=== PATIENT | male | born 1940 | race Caucasian/White ===

== ENCOUNTER 2019-05-31 22:40 | Observation (INO) | payer MEDICARE, MEDICAID ==
[2019-05-31] MEDS ORDERED: Sodium Chloride 0.9% 10 ML Syringe FLUSH PRN (22:52)
--- NOTE | 2019-05-31 23:08 | EDM.PDOC ---
ED HPI GENERAL MEDICAL PROBLEM - General Stated Complaint: ELEVATED TEMP Time Seen by Provider: 05/31/19 22:40 Source of Information: Reports: Patient History Limitations: Reports: No Limitations - History of Present Illness INITIAL COMMENTS - FREE TEXT/NARRATIVE: Pt. presents to ER via EMS. Pt. is a resident at [facility]. Pt. has been experiencing urinary urgency, frequency and dysuria for the past 24 hours. He was started on Cipro today and has had 2 doses of the medication orally. Staff is concerned that he has been spiking fevers-T max today 104.4. He has been receiving tylenol for the fever. Pt. only complaint is that of feeling fatigued and dizzy. He denies any chest pain or shortness of breath. No nausea, vomiting, or diarrhea. No melena, hematochezia, or hematemesis. He has been able to hold down fluids. Pt. denies any abdominal, back or flank pain. He has been alert but fatigued and has been answering all questions appropriately. Onset: Today Onset Date: 05/31/19 Location: Reports: Generalized Associated Symptoms: Reports: Fever/Chills, Malaise - Related Data Allergies Allergy/AdvReac Type Severity Reaction Status Date / Time adenosine Allergy Cannot Verified 05/31/19 23:52 Remember clindamycin Allergy Cannot Verified 05/31/19 23:52 Remember gluten Allergy Stomach Verified 05/31/19 23:52 Upset lisinopril Allergy Cough Verified 05/31/19 23:52 Home Meds: Home Meds Isosorbide Mononitrate [Imdur] 30 mg PO DAILY 12/22/15 [History] Nitroglycerin [Nitrostat] 0.4 mg PO ASDIRECTED PRN 12/22/15 [History] Donepezil [Aricept] 5 mg PO BEDTIME 08/19/18 [History] Escitalopram [Lexapro] 10 mg PO DAILY 08/19/18 [History] Esomeprazole [NexIUM] 20 mg PO ACBREAKFAST 08/19/18 [History] Hydrocodone/Acetaminophen [Hydrocodon-Acetaminophen 5-325] 5 - 325 mg PO Q4HR PRN 08/19/18 [History] Memantine HCl [Namenda] 5 mg PO BID 08/19/18 [History] Polyethylene Glycol 3350 [Miralax] 17 gr PO BEDTIME 08/19/18 [History] Tamsulosin [Flomax] 0.4 mg PO DAILY 08/19/18 [History] amLODIPine Besylate [Amlodipine Besylate] 5 mg PO DAILY 08/19/18 [History] carvediloL [Carvedilol] 6.25 mg PO BIDMEALS 08/19/18 [History] Polyethylene Glycol 3350 [MiraLAX] 17 gram PO DAILY 10/02/18 [History] Past Medical History HEENT History: Reports: Impaired Vision Other HEENT History: wears glasses Cardiovascular History: Reports: High Cholesterol, Hypertension Respiratory History: Reports: None Gastrointestinal History: Reports: Chronic Constipation, GERD Other Gastrointestinal History: diverticulitis Genitourinary History: Reports: BPH Other Genitourinary History: CKD Other Neuro History: memory loss Psychiatric History: Reports: Depression Endocrine/Metabolic History: Reports: None Hematologic History: Reports: None Immunologic History: Reports: None Oncologic (Cancer) History: Reports: None Dermatologic History: Reports: None - Past Surgical History Head Surgeries/Procedures: Reports: None HEENT Surgical History: Reports: Tonsillectomy GI Surgical History: Reports: Hernia Repair/Other Social & Family History - Family History Family Medical History: Noncontributory - Caffeine Use Caffeine Use: Reports: None ED ROS GENERAL - Review of Systems Review Of Systems: See Below Constitutional: Reports: Fever, Chills, Malaise, Weakness, Fatigue. Denies: Night Sweats, Diaphoresis, Decreased Appetite, Weight Loss, Weight Gain HEENT: Reports: No Symptoms Respiratory: Reports: No Symptoms Cardiovascular: Reports: No Symptoms Endocrine: Reports: No Symptoms GI/Abdominal: Reports: No Symptoms : Reports: Frequency, Urgency Musculoskeletal: Reports: No Symptoms Skin: Reports: No Symptoms Neurological: Reports: Other (Hx of dementia, but recalls history of his illness today, able to provide a ROS.) Psychiatric: Reports: No Symptoms Hematologic/Lymphatic: Reports: No Symptoms Immunologic: Reports: No Symptoms ED EXAM, GENERAL - Physical Exam Exam: See Below Exam Limited By: No Limitations General Appearance: Alert, WD/WN, No Apparent Distress Nose: Normal Inspection, No Blood Throat/Mouth: Normal Inspection, Normal Lips, Normal Gums, Normal Oropharynx, Normal Voice, No Airway Compromise Head: Atraumatic, Normocephalic Neck: Normal Inspection, Supple, Non-Tender, Full Range of Motion Respiratory/Chest: No Respiratory Distress, Lungs Clear, Normal Breath Sounds, No Accessory Muscle Use, Chest Non-Tender Cardiovascular: Normal Peripheral Pulses, Regular Rate, Rhythm, No Edema, No Gallop, No JVD, No Murmur, No Rub Peripheral Pulses: 4+: Radial (R) GI/Abdominal: Normal Bowel Sounds, Soft, Non-Tender, No Organomegaly, No Distention, No Mass (Male) Exam: Deferred Rectal (Males) Exam: Deferred Back Exam: Normal Inspection, Full Range of Motion Extremities: Normal Inspection, Normal Range of Motion, Non-Tender, No Pedal Edema, Normal Capillary Refill Neurological: Alert, Oriented, CN II-XII Intact, Normal Cognition, No Motor/ Sensory Deficits Course - Orders/Labs/Meds Orders: Active Orders 24 hr Category Date Time Status Chest 1V Frontal [CR] Stat Exams 05/31/19 22:53 Ordered CBC WITH AUTO DIFF [HEME] Stat Lab 05/31/19 22:53 Ordered COMPREHENSIVE METABOLIC PN,CMP [CHEM] Stat Lab 05/31/19 22:53 Ordered CRP [C-REACTIVE PROTEIN] [CHEM] Stat Lab 05/31/19 22:53 Ordered CULTURE BLOOD [BC] Stat Lab 05/31/19 22:54 Ordered CULTURE BLOOD [BC] Stat Lab 05/31/19 22:54 Ordered INR,PT,PROTHROMBIN TIME [COAG] Stat Lab 05/31/19 22:53 Ordered LACTIC ACID [CHEM] Stat Lab 05/31/19 22:53 Ordered MAGNESIUM [CHEM] Stat Lab 05/31/19 22:54 Ordered PHOSPHORUS [CHEM] Stat Lab 05/31/19 22:54 Ordered UA W/MICROSCOPIC [URIN] Stat Lab 05/31/19 22:54 Ordered Sodium Chloride 0.9% [Saline Flush] Med 05/31/19 22:52 Ordered 10 ml FLUSH ASDIRECTED PRN Blood Culture x2 Reflex Set [OM.PC] Stat Oth 05/31/19 22:54 Ordered Peripheral IV Insertion Adult [OM.PC] Routine Oth 05/31/19 22:53 Ordered Medication Orders Sodium Chloride (Saline Flush) 10 ml FLUSH ASDIRECTED PRN PRN Reason: Keep Vein Open Meds: Medications Generic Name Dose Route Start Last Admin Trade Name Freq PRN Reason Stop Dose Admin Sodium Chloride 10 ml 05/31/19 22:52 Saline Flush FLUSH ASDIRECTED PRN Keep Vein Open - Radiology Interpretation Free Text/Narrative:: Chest x-ray is negative. Departure - Departure Time of Disposition: 12:13 Disposition: Refer to Observation Clinical Impression: UTI (urinary tract infection) - Discharge Information Referrals: Abhay Tolentino MD [Primary Care Provider] - - Problem List Review Problem List Initiated/Reviewed/Updated: Yes - My Orders Last 24 Hours: My Active Orders 05/31/19 22:52 Sodium Chloride 0.9% [Saline Flush] 10 ml FLUSH ASDIRECTED PRN 05/31/19 22:53 Chest 1V Frontal [CR] Stat CBC WITH AUTO DIFF [HEME] Stat COMPREHENSIVE METABOLIC PN,CMP [CHEM] Stat CRP [C-REACTIVE PROTEIN] [CHEM] Stat INR,PT,PROTHROMBIN TIME [COAG] Stat LACTIC ACID [CHEM] Stat Peripheral IV Insertion Adult [OM.PC] Routine 05/31/19 22:54 CULTURE BLOOD [BC] Stat CULTURE BLOOD [BC] Stat MAGNESIUM [CHEM] Stat PHOSPHORUS [CHEM] Stat UA W/MICROSCOPIC [URIN] Stat Blood Culture x2 Reflex Set [OM.PC] Stat - Assessment/Plan Admission H&P: Please use this note as an admission H&P Last 24 Hours: My Active Orders 05/31/19 22:52 Sodium Chloride 0.9% [Saline Flush] 10 ml FLUSH ASDIRECTED PRN 05/31/19 22:53 Chest 1V Frontal [CR] Stat CBC WITH AUTO DIFF [HEME] Stat COMPREHENSIVE METABOLIC PN,CMP [CHEM] Stat CRP [C-REACTIVE PROTEIN] [CHEM] Stat INR,PT,PROTHROMBIN TIME [COAG] Stat LACTIC ACID [CHEM] Stat Peripheral IV Insertion Adult [OM.PC] Routine 05/31/19 22:54 CULTURE BLOOD [BC] Stat CULTURE BLOOD [BC] Stat MAGNESIUM [CHEM] Stat PHOSPHORUS [CHEM] Stat UA W/MICROSCOPIC [URIN] Stat Blood Culture x2 Reflex Set [OM.PC] Stat Plan: Pt. will be admitted observation. His lactic acid, white count and CRP are all elevated, and he was tachypneic prior to arrival to ER. He was given Rocephin 2 gm IV. He was given a liter of NS in ER. Tylenol as needed for fever. Continue IV fluids at 100ml/hr. Will continue IV rocephin 1 gm daily tomorrow evening. Will repeat CBC, CMP, and lactic acid in the AM.
[2019-05-31] MEDS ORDERED: Ondansetron 4 MG/2 ML SDV IVPUSH ONE (23:35)
[2019-05-31] MEDS ORDERED: Sodium Chloride 0.9% 1,000 ML IV ONE (23:37)
[2019-05-31] MEDS ORDERED: cefTRIAXone 2 GM Vial IVPUSH ONE (23:43)
[2019-05-31 23:51] LABS: ANION GAP 17.4 mmol/L (10-20); CHLORIDE,CL 103 mmol/L (98-107); SODIUM,NA 141 mmol/L (136-145)
[2019-06-01] MEDS ORDERED: Polyethylene Glycol 3350 Powder 17 GM Packet PO PRN (01:55)
[2019-06-01] MEDS ORDERED: NS + KCl 20mEq/L 1,000 ML IV SCH (02:00)
[2019-06-01 07:16] LABS: ANION GAP 14.7 mmol/L (10-20)
--- NOTE | 2019-06-01 07:36 | CR ---
[id number] RAD/RAD Chest PA or AP 1V EXAM: RAD Chest PA or AP 1V INDICATION: FEVER COMPARISON: None. DISCUSSION: Cardiomegaly and central vascular congestion. Possible small bilateral pleural effusions. No evidence of pneumonia. No pneumothorax. IMPRESSION: No radiographically evident pneumonia. Other findings are described above. Greyson Cardenas MD 06/01/19 0735 Thank you for allowing us to participate in the care of your patient.
[2019-06-01] MEDS ORDERED: Mirtazapine 15 MG Tab PO SCH ×2 (08:00→20:00)
--- NOTE | 2019-06-01 09:08 | PCM.DCSUM1 ---
Discharge Summary - Hospital Course Free Text/Narrative:: S: Pt presents to the er c/o fever, urinary frequency and pain on urination. PT was started on cipro and had 2 doses at this time. Pt was admitted last night for IV fluid and rocephin. At this time pt is feeling a little better states he want to go back home. Lactate is down to 1.1 WBC down to 17.6, Will [facility] pt to start back on cipro 500 mg po bid x 5 days, pt to follow up with pcp. O: HEENT clear, LS cta all robertson, Heart: S1, S2, Skin: pink, warm, dry, Cap refill within 2 sec. Pt able to take PO fluid / food. See labs A: UTI P: [facility]C [facility], continue cipro, follow up with pcp once medication is complete for continued care. Diagnosis: Stroke: No - Discharge Data Discharge Date: 06/01/19 Discharge Disposition: DC/[facility]fer to [facility] Condition: Stable - Referral to Home Health Primary Care Physician: Abhay Tolentino MD - Discharge Diagnosis/Problem(s) (1) UTI (urinary tract infection) SNOMED Code(s): 31900903 ICD Code: N39.0 - URINARY TRACT INFECTION, SITE NOT SPECIFIED Status: Acute Current Visit: Yes - Patient Instructions Diet: Usual Diet as Tolerated Activity: As Tolerated Showering/Bathing: May Shower - Discharge Plan Home Medications: Home Meds Isosorbide Mononitrate [Imdur] 30 mg PO DAILY 12/22/15 [History] Nitroglycerin [Nitrostat] 0.4 mg PO ASDIRECTED PRN 12/22/15 [History] Escitalopram [Lexapro] 10 mg PO DAILY 08/19/18 [History] Tamsulosin [Flomax] 0.4 mg PO DAILY 08/19/18 [History] amLODIPine Besylate [Amlodipine Besylate] 5 mg PO DAILY 08/19/18 [History] carvediloL [Carvedilol] 6.25 mg PO BIDMEALS 08/19/18 [History] Polyethylene Glycol 3350 [MiraLAX] 17 gram PO DAILY PRN 10/02/18 [History] Calcium Citrate/Vitamin D3 [Calcium Citrate - Vit D Caplet] 1 tab PO BID [History] Ciprofloxacin HCl [Cipro] 500 mg PO BID 06/01/19 [History] Docusate Sodium [Colace] 100 mg PO BID 06/01/19 [History] Mirtazapine 15 mg PO DAILY 06/01/19 [History] Pantoprazole Sodium [Protonix] 40 mg PO DAILY 06/01/19 [History] risperiDONE 0.5 mg PO DAILY 06/01/19 [History] Forms: ED Department Discharge Referrals: Abhay Tolentino MD [Primary Care Provider] - - Discharge Summary/Plan Comment DC Time >30 min.: Yes Discharge Summary/Plan Comment: continue cipro 500 mg po bid x 5 days. Follow up with pcp for continued care. - Patient Data Vitals - Most Recent: Last Vital Signs Temp 36.6 C 06/01/19 04:57 Pulse 113 H 06/01/19 04:57 Resp 18 06/01/19 04:57 BP 127/52 L 06/01/19 04:57 Pulse Ox 91 L 06/01/19 04:57 Weight - Most Recent: 130.635 kg I&O - Last 24 hours: Intake & Output 05/31/19 06/01/19 06/01/19 22:59 06:59 14:59 Intake Total 1390 Output Total 550 Balance 840 Lab Results - Last 24 hrs: Laboratory Results - last 24 hr 05/31/19 05/31/19 05/31/19 Range/Units 23:13 23:13 23:13 WBC 18.1 H (4.0-10.0) x10^3/uL RBC 4.65 (4.5-6.0) x10^6/uL Hgb 13.7 L (14.0-18.0) g/dL Hct 39.5 L (40.0-52.0) % MCV 84.9 (78.0-93.0) fL MCH 29.5 (26.0-32.0) pg MCHC 34.7 (32.0-36.0) g/dL RDW Coeff of Frantz 13.7 (10.0-15.0) % Plt Count 117 L (130-400) x10^3/uL Neut % (Auto) 81.1 H (50.0-80.0) % Lymph % (Auto) 12.2 L (25.0-50.0) % Beckham % (Auto) 6.5 (2.0-11.0) % Eos % (Auto) 0.1 (0.0-4.0) % Baso % (Auto) 0.1 L (0.2-1.2) % PT 11.8 (10.0-12.8) SEC INR 1.0 L (2.0-3.5) Sodium 141 (136-145) mmol/L Potassium 3.4 L (3.5-5.1) mmol/L Chloride 103 (98-107) mmol/L Carbon Dioxide 24 (21-32) mmol/L Anion Gap 17.4 (10-20) mmol/L BUN 23 H (7-18) mg/dL Creatinine 1.4 H (0.70-1.30) mg/dL Est Cr Clr Drug Dosing TNP Estimated GFR (MDRD) 49 Glucose 137 H (74-106) mg/dL Lactic Acid (0.4-2.0) mmol/L Calcium 8.4 L (8.5-10.1) mg/dL Corrected Calcium 8.96 (8.5-10.1) mg/dL Phosphorus 2.0 L (2.6-4.7) mg/dL Magnesium 1.4 L (1.8-2.4) mg/dL Total Bilirubin 1.4 H (0.2-1.0) mg/dL AST 15 (15-37) U/L ALT 17 (16-63) U/L Alkaline Phosphatase 63 (46-116) U/L C-Reactive Protein 7.1 H (<=0.9) mg/dL Total Protein 7.2 (6.4-8.2) g/dL Albumin 3.3 L (3.4-5.0) g/dL Globulin 3.9 Albumin/Globulin Ratio 0.85 Urine Color (YELLOW) Urine Appearance (CLEAR) Urine pH (5.0-8.0) Ur Specific Buford Urine Protein (NEGATIVE) mg/dL Urine Glucose (UA) (NEGATIVE) mg/dL Urine Ketones (NEGATIVE) mg/dL Urine Occult Blood (NEGATIVE) Urine Nitrite (NEGATIVE) Urine Bilirubin (NEGATIVE) Urine Urobilinogen (0.2) EU/dL Ur Leukocyte Esterase (NEGATIVE) Urine RBC (NOT SEEN) /HPF Urine WBC (NOT SEEN) /HPF Ur Squamous Epith Cells (NEGATIVE) /HPF Urine Bacteria (NEGATIVE) /HPF Urine Mucus (NEGATIVE) /LPF 05/31/19 05/31/19 06/01/19 Range/Units 23:13 23:36 06:46 WBC (4.0-10.0) x10^3/uL RBC (4.5-6.0) x10^6/uL Hgb (14.0-18.0) g/dL Hct (40.0-52.0) % MCV (78.0-93.0) fL MCH (26.0-32.0) pg MCHC (32.0-36.0) g/dL RDW Coeff of Frantz (10.0-15.0) % Plt Count (130-400) x10^3/uL Neut % (Auto) (50.0-80.0) % Lymph % (Auto) (25.0-50.0) % Beckham % (Auto) (2.0-11.0) % Eos % (Auto) (0.0-4.0) % Baso % (Auto) (0.2-1.2) % PT (10.0-12.8) SEC INR (2.0-3.5) Sodium (136-145) mmol/L Potassium (3.5-5.1) mmol/L Chloride (98-107) mmol/L Carbon Dioxide (21-32) mmol/L Anion Gap (10-20) mmol/L BUN (7-18) mg/dL Creatinine (0.70-1.30) mg/dL Est Cr Clr Drug Dosing Estimated GFR (MDRD) Glucose (74-106) mg/dL Lactic Acid 2.1 H* 1.1 (0.4-2.0) mmol/L Calcium (8.5-10.1) mg/dL Corrected Calcium (8.5-10.1) mg/dL Phosphorus (2.6-4.7) mg/dL Magnesium (1.8-2.4) mg/dL Total Bilirubin (0.2-1.0) mg/dL AST (15-37) U/L ALT (16-63) U/L Alkaline Phosphatase (46-116) U/L C-Reactive Protein (<=0.9) mg/dL Total Protein (6.4-8.2) g/dL Albumin (3.4-5.0) g/dL Globulin Albumin/Globulin Ratio Urine Color Dark yellow H (YELLOW) Urine Appearance Cloudy H (CLEAR) Urine pH 6.0 (5.0-8.0) Ur Specific Buford 1.025 Urine Protein 100 H (NEGATIVE) mg/dL Urine Glucose (UA) Negative (NEGATIVE) mg/dL Urine Ketones Negative (NEGATIVE) mg/dL Urine Occult Blood Moderate H (NEGATIVE) Urine Nitrite Negative (NEGATIVE) Urine Bilirubin Negative (NEGATIVE) Urine Urobilinogen 0.2 (0.2) EU/dL Ur Leukocyte Esterase Moderate H (NEGATIVE) Urine RBC 40-50 H (NOT SEEN) /HPF Urine WBC 30-40 H (NOT SEEN) /HPF Ur Squamous Epith Cells Rare (NEGATIVE) /HPF Urine Bacteria Few H (NEGATIVE) /HPF Urine Mucus Few H (NEGATIVE) /LPF 06/01/19 06/01/19 Range/Units 06:46 06:46 WBC 17.6 H (4.0-10.0) x10^3/uL RBC 4.62 (4.5-6.0) x10^6/uL Hgb 13.9 L (14.0-18.0) g/dL Hct 39.9 L (40.0-52.0) % MCV 86.4 (78.0-93.0) fL MCH 30.1 (26.0-32.0) pg MCHC 34.8 (32.0-36.0) g/dL RDW Coeff of Frantz 13.8 (10.0-15.0) % Plt Count 113 L (130-400) x10^3/uL Neut % (Auto) 79.9 (50.0-80.0) % Lymph % (Auto) 13.2 L (25.0-50.0) % Beckham % (Auto) 6.7 (2.0-11.0) % Eos % (Auto) 0.1 (0.0-4.0) % Baso % (Auto) 0.1 L (0.2-1.2) % PT (10.0-12.8) SEC INR (2.0-3.5) Sodium 142 (136-145) mmol/L Potassium 3.7 (3.5-5.1) mmol/L Chloride 104 (98-107) mmol/L Carbon Dioxide 27 (21-32) mmol/L Anion Gap 14.7 (10-20) mmol/L BUN 18 (7-18) mg/dL Creatinine 1.3 (0.70-1.30) mg/dL Est Cr Clr Drug Dosing 41.39 Estimated GFR (MDRD) 54 Glucose 116 H (74-106) mg/dL Lactic Acid (0.4-2.0) mmol/L Calcium 7.9 L (8.5-10.1) mg/dL Corrected Calcium (8.5-10.1) mg/dL Phosphorus (2.6-4.7) mg/dL Magnesium (1.8-2.4) mg/dL Total Bilirubin (0.2-1.0) mg/dL AST (15-37) U/L ALT (16-63) U/L Alkaline Phosphatase (46-116) U/L C-Reactive Protein (<=0.9) mg/dL Total Protein (6.4-8.2) g/dL Albumin (3.4-5.0) g/dL Globulin Albumin/Globulin Ratio Urine Color (YELLOW) Urine Appearance (CLEAR) Urine pH (5.0-8.0) Ur Specific Buford Urine Protein (NEGATIVE) mg/dL Urine Glucose (UA) (NEGATIVE) mg/dL Urine Ketones (NEGATIVE) mg/dL Urine Occult Blood (NEGATIVE) Urine Nitrite (NEGATIVE) Urine Bilirubin (NEGATIVE) Urine Urobilinogen (0.2) EU/dL Ur Leukocyte Esterase (NEGATIVE) Urine RBC (NOT SEEN) /HPF Urine WBC (NOT SEEN) /HPF Ur Squamous Epith Cells (NEGATIVE) /HPF Urine Bacteria (NEGATIVE) /HPF Urine Mucus (NEGATIVE) /LPF Med Orders - Current: Current Medications Amlodipine Besylate (Norvasc) 5 mg PO DAILY [facility] Carvedilol (Coreg) 6.25 mg PO BIDMEALS [facility] Ceftriaxone Sodium (Rocephin) 1 gm IVPUSH DAILY [facility] Citalopram Hydrobromide (Celexa) 20 mg PO DAILY [facility] Docusate Sodium (Colace) 100 mg PO BID [facility] Potassium Chloride/Sodium Chloride (Normal Saline With 20 Meq Kcl) 1,000 mls @ 125 mls/hr IV ASDIRECTED [facility] Last Admin: 06/01/19 02:50 Dose: 125 mls/hr Isosorbide Mononitrate (Imdur) 30 mg PO DAILY [facility] Melatonin (Melatonin) 6 mg PO BEDTIME [facility] Mirtazapine (Remeron) 15 mg PO BEDTIME [facility] Pantoprazole Sodium (Protonix) 40 mg PO DAILY [facility] Polyethylene Glycol (Miralax) 17 gm PO DAILY PRN PRN Reason: Constipation Risperidone (Risperidal) 0.5 mg PO DAILY [facility] Sodium Chloride (Saline Flush) 10 ml FLUSH ASDIRECTED PRN PRN Reason: Keep Vein Open Tamsulosin HCl (Flomax) 0.4 mg PO DAILY [facility] Discontinued Medications Ceftriaxone Sodium (Rocephin) 2 gm IVPUSH STAT ONE Stop: 05/31/19 23:44 Last Admin: 05/31/19 23:52 Dose: 2 gm Sodium Chloride (Normal Saline) 1,000 mls @ 1,000 mls/hr IV .BOLUS ONE Stop: 06/01/19 00:36 Last Admin: 05/31/19 23:20 Dose: 1,000 mls/hr Mirtazapine (Remeron) 15 mg PO DAILY [facility] Ondansetron HCl (Zofran) 4 mg IVPUSH ONETIME ONE Stop: 05/31/19 23:36 Last Admin: 05/31/19 23:40 Dose: 4 mg
[2019-06-01] MEDS: risperiDONE 0.25 MG Tab PO SCH (09:34)
[2019-06-01] MEDS: Carvedilol 6.25 MG Tab PO SCH ×2 (09:34→17:07)
[2019-06-01] MEDS: Docusate Sodium 100 MG Cap PO SCH ×2 (09:34→20:33)
[2019-06-01] MEDS: Isosorbide Mononitrate 30 MG Tab.ER PO SCH (09:35)
[2019-06-01] MEDS: Pantoprazole 40 MG Tab.CR PO SCH (09:35)
[2019-06-01] MEDS: Tamsulosin 0.4 MG Cap.ER PO SCH (09:36)
[2019-06-01] MEDS: amLODIPine 5 MG Tab PO SCH (09:36)
[2019-06-01] MEDS: Citalopram 20 MG Tab PO SCH (09:36)
[2019-06-01] MEDS: Acetaminophen 325 MG Tab PO PRN ×3 (11:16→19:19)
--- NOTE | 2019-06-01 13:01 | PCM.PN ---
- General Info Date of Service: 06/01/19 Admission Dx/Problem (Free Text): PT dx with uti presented to er last night with fever, pt was started on cipro and has had 2 doses as of that time. Was admitted placed on IV fluid, Rocephin 1G q24 hours. Pt has no elevated temp this am. Was feeling better. Was going to discharge back to correction with po medication when pt with fever at 101.8 will keep another 24 hrs continue rocephin and tylenol for fever, will revaluate in am. If fever free will d/c at that time. Functional Status: Reports: Pain Controlled - Review of Systems General: Reports: No Symptoms HEENT: Reports: No Symptoms Pulmonary: Reports: No Symptoms Cardiovascular: Reports: No Symptoms Gastrointestinal: Reports: No Symptoms Genitourinary: Reports: Dysuria, Frequency Skin: Reports: No Symptoms - Patient Data Vitals - Most Recent: Last Vital Signs Temp 38.8 C H 06/01/19 11:16 Pulse 92 06/01/19 10:00 Resp 28 H 06/01/19 10:00 BP 155/75 H 06/01/19 10:00 Pulse Ox 96 06/01/19 10:00 Weight - Most Recent: 130.635 kg I&O - Last 24 Hours: Intake & Output 05/31/19 06/01/19 06/01/19 22:59 06:59 14:59 Intake Total 1390 Output Total 550 130 Balance 840 -130 Lab Results Last 24 Hours: Laboratory Results - last 24 hr 05/31/19 05/31/19 05/31/19 Range/Units 23:13 23:13 23:13 WBC 18.1 H (4.0-10.0) x10^3/uL RBC 4.65 (4.5-6.0) x10^6/uL Hgb 13.7 L (14.0-18.0) g/dL Hct 39.5 L (40.0-52.0) % MCV 84.9 (78.0-93.0) fL MCH 29.5 (26.0-32.0) pg MCHC 34.7 (32.0-36.0) g/dL RDW Coeff of Frantz 13.7 (10.0-15.0) % Plt Count 117 L (130-400) x10^3/uL Neut % (Auto) 81.1 H (50.0-80.0) % Lymph % (Auto) 12.2 L (25.0-50.0) % [place] % (Auto) 6.5 (2.0-11.0) % Eos % (Auto) 0.1 (0.0-4.0) % Baso % (Auto) 0.1 L (0.2-1.2) % PT 11.8 (10.0-12.8) SEC INR 1.0 L (2.0-3.5) Sodium 141 (136-145) mmol/L Potassium 3.4 L (3.5-5.1) mmol/L Chloride 103 (98-107) mmol/L Carbon Dioxide 24 (21-32) mmol/L Anion Gap 17.4 (10-20) mmol/L BUN 23 H (7-18) mg/dL Creatinine 1.4 H (0.70-1.30) mg/dL Est Cr Clr Drug Dosing TNP Estimated GFR (MDRD) 49 Glucose 137 H (74-106) mg/dL Lactic Acid (0.4-2.0) mmol/L Calcium 8.4 L (8.5-10.1) mg/dL Corrected Calcium 8.96 (8.5-10.1) mg/dL Phosphorus 2.0 L (2.6-4.7) mg/dL Magnesium 1.4 L (1.8-2.4) mg/dL Total Bilirubin 1.4 H (0.2-1.0) mg/dL AST 15 (15-37) U/L ALT 17 (16-63) U/L Alkaline Phosphatase 63 (46-116) U/L C-Reactive Protein 7.1 H (<=0.9) mg/dL Total Protein 7.2 (6.4-8.2) g/dL Albumin 3.3 L (3.4-5.0) g/dL Globulin 3.9 Albumin/Globulin Ratio 0.85 Urine Color (YELLOW) Urine Appearance (CLEAR) Urine pH (5.0-8.0) Ur Specific [place] Urine Protein (NEGATIVE) mg/dL Urine Glucose (UA) (NEGATIVE) mg/dL Urine Ketones (NEGATIVE) mg/dL Urine Occult Blood (NEGATIVE) Urine Nitrite (NEGATIVE) Urine Bilirubin (NEGATIVE) Urine Urobilinogen (0.2) EU/dL Ur Leukocyte Esterase (NEGATIVE) Urine RBC (NOT SEEN) /HPF Urine WBC (NOT SEEN) /HPF Ur Squamous Epith Cells (NEGATIVE) /HPF Urine Bacteria (NEGATIVE) /HPF Urine Mucus (NEGATIVE) /LPF 05/31/19 05/31/19 06/01/19 Range/Units 23:13 23:36 06:46 WBC (4.0-10.0) x10^3/uL RBC (4.5-6.0) x10^6/uL Hgb (14.0-18.0) g/dL Hct (40.0-52.0) % MCV (78.0-93.0) fL MCH (26.0-32.0) pg MCHC (32.0-36.0) g/dL RDW Coeff of Frantz (10.0-15.0) % Plt Count (130-400) x10^3/uL Neut % (Auto) (50.0-80.0) % Lymph % (Auto) (25.0-50.0) % [place] % (Auto) (2.0-11.0) % Eos % (Auto) (0.0-4.0) % Baso % (Auto) (0.2-1.2) % PT (10.0-12.8) SEC INR (2.0-3.5) Sodium (136-145) mmol/L Potassium (3.5-5.1) mmol/L Chloride (98-107) mmol/L Carbon Dioxide (21-32) mmol/L Anion Gap (10-20) mmol/L BUN (7-18) mg/dL Creatinine (0.70-1.30) mg/dL Est Cr Clr Drug Dosing Estimated GFR (MDRD) Glucose (74-106) mg/dL Lactic Acid 2.1 H* 1.1 (0.4-2.0) mmol/L Calcium (8.5-10.1) mg/dL Corrected Calcium (8.5-10.1) mg/dL Phosphorus (2.6-4.7) mg/dL Magnesium (1.8-2.4) mg/dL Total Bilirubin (0.2-1.0) mg/dL AST (15-37) U/L ALT (16-63) U/L Alkaline Phosphatase (46-116) U/L C-Reactive Protein (<=0.9) mg/dL Total Protein (6.4-8.2) g/dL Albumin (3.4-5.0) g/dL Globulin Albumin/Globulin Ratio Urine Color Dark yellow H (YELLOW) Urine Appearance Cloudy H (CLEAR) Urine pH 6.0 (5.0-8.0) Ur Specific [place] 1.025 Urine Protein 100 H (NEGATIVE) mg/dL Urine Glucose (UA) Negative (NEGATIVE) mg/dL Urine Ketones Negative (NEGATIVE) mg/dL Urine Occult Blood Moderate H (NEGATIVE) Urine Nitrite Negative (NEGATIVE) Urine Bilirubin Negative (NEGATIVE) Urine Urobilinogen 0.2 (0.2) EU/dL Ur Leukocyte Esterase Moderate H (NEGATIVE) Urine RBC 40-50 H (NOT SEEN) /HPF Urine WBC 30-40 H (NOT SEEN) /HPF Ur Squamous Epith Cells Rare (NEGATIVE) /HPF Urine Bacteria Few H (NEGATIVE) /HPF Urine Mucus Few H (NEGATIVE) /LPF 06/01/19 06/01/19 Range/Units 06:46 06:46 WBC 17.6 H (4.0-10.0) x10^3/uL RBC 4.62 (4.5-6.0) x10^6/uL Hgb 13.9 L (14.0-18.0) g/dL Hct 39.9 L (40.0-52.0) % MCV 86.4 (78.0-93.0) fL MCH 30.1 (26.0-32.0) pg MCHC 34.8 (32.0-36.0) g/dL RDW Coeff of Frantz 13.8 (10.0-15.0) % Plt Count 113 L (130-400) x10^3/uL Neut % (Auto) 79.9 (50.0-80.0) % Lymph % (Auto) 13.2 L (25.0-50.0) % [place] % (Auto) 6.7 (2.0-11.0) % Eos % (Auto) 0.1 (0.0-4.0) % Baso % (Auto) 0.1 L (0.2-1.2) % PT (10.0-12.8) SEC INR (2.0-3.5) Sodium 142 (136-145) mmol/L Potassium 3.7 (3.5-5.1) mmol/L Chloride 104 (98-107) mmol/L Carbon Dioxide 27 (21-32) mmol/L Anion Gap 14.7 (10-20) mmol/L BUN 18 (7-18) mg/dL Creatinine 1.3 (0.70-1.30) mg/dL Est Cr Clr Drug Dosing 41.39 Estimated GFR (MDRD) 54 Glucose 116 H (74-106) mg/dL Lactic Acid (0.4-2.0) mmol/L Calcium 7.9 L (8.5-10.1) mg/dL Corrected Calcium (8.5-10.1) mg/dL Phosphorus (2.6-4.7) mg/dL Magnesium (1.8-2.4) mg/dL Total Bilirubin (0.2-1.0) mg/dL AST (15-37) U/L ALT (16-63) U/L Alkaline Phosphatase (46-116) U/L C-Reactive Protein (<=0.9) mg/dL Total Protein (6.4-8.2) g/dL Albumin (3.4-5.0) g/dL Globulin Albumin/Globulin Ratio Urine Color (YELLOW) Urine Appearance (CLEAR) Urine pH (5.0-8.0) Ur Specific [place] Urine Protein (NEGATIVE) mg/dL Urine Glucose (UA) (NEGATIVE) mg/dL Urine Ketones (NEGATIVE) mg/dL Urine Occult Blood (NEGATIVE) Urine Nitrite (NEGATIVE) Urine Bilirubin (NEGATIVE) Urine Urobilinogen (0.2) EU/dL Ur Leukocyte Esterase (NEGATIVE) Urine RBC (NOT SEEN) /HPF Urine WBC (NOT SEEN) /HPF Ur Squamous Epith Cells (NEGATIVE) /HPF Urine Bacteria (NEGATIVE) /HPF Urine Mucus (NEGATIVE) /LPF Med Orders - Current: Current Medications Acetaminophen (Tylenol) 650 mg PO Q4H PRN PRN Reason: Fever Last Admin: 06/01/19 11:16 Dose: 650 mg Amlodipine Besylate (Norvasc) 5 mg PO DAILY [facility] Last Admin: 06/01/19 09:36 Dose: 5 mg Carvedilol (Coreg) 6.25 mg PO BIDMEALS [facility] Last Admin: 06/01/19 09:34 Dose: 6.25 mg Ceftriaxone Sodium (Rocephin) 1 gm IVPUSH DAILY [facility] Citalopram Hydrobromide (Celexa) 20 mg PO DAILY [facility] Last Admin: 06/01/19 09:36 Dose: 20 mg Docusate Sodium (Colace) 100 mg PO BID [facility] Last Admin: 06/01/19 09:34 Dose: 100 mg Isosorbide Mononitrate (Imdur) 30 mg PO DAILY [facility] Last Admin: 06/01/19 09:35 Dose: 30 mg Melatonin (Melatonin) 6 mg PO BEDTIME [facility] Mirtazapine (Remeron) 15 mg PO BEDTIME [facility] Pantoprazole Sodium (Protonix) 40 mg PO DAILY [facility] Last Admin: 06/01/19 09:35 Dose: 40 mg Polyethylene Glycol (Miralax) 17 gm PO DAILY PRN PRN Reason: Constipation Risperidone (Risperidal) 0.5 mg PO DAILY [facility] Last Admin: 06/01/19 09:34 Dose: 0.5 mg Sodium Chloride (Saline Flush) 10 ml FLUSH ASDIRECTED PRN PRN Reason: Keep Vein Open Tamsulosin HCl (Flomax) 0.4 mg PO DAILY [facility] Last Admin: 06/01/19 09:36 Dose: 0.4 mg Discontinued Medications Ceftriaxone Sodium (Rocephin) 2 gm IVPUSH STAT ONE Stop: 05/31/19 23:44 Last Admin: 05/31/19 23:52 Dose: 2 gm Sodium Chloride (Normal Saline) 1,000 mls @ 1,000 mls/hr IV .BOLUS ONE Stop: 06/01/19 00:36 Last Admin: 05/31/19 23:20 Dose: 1,000 mls/hr Potassium Chloride/Sodium Chloride (Normal Saline With 20 Meq Kcl) 1,000 mls @ 125 mls/hr IV ASDIRECTED [facility] Last Admin: 06/01/19 02:50 Dose: 125 mls/hr Mirtazapine (Remeron) 15 mg PO DAILY [facility] Ondansetron HCl (Zofran) 4 mg IVPUSH ONETIME ONE Stop: 05/31/19 23:36 Last Admin: 05/31/19 23:40 Dose: 4 mg - Problem List & Annotations (1) UTI (urinary tract infection) SNOMED Code(s): 72039528 Code(s): N39.0 - URINARY TRACT INFECTION, SITE NOT SPECIFIED Status: Acute Current Visit: Yes - Problem List Review Problem List Initiated/Reviewed/Updated: Yes - My Orders Last 24 Hours: My Active Orders 06/01/19 10:19 Ready for Discharge [RC] PER UNIT ROUTINE 06/01/19 10:41 Acetaminophen [Tylenol] 650 mg PO Q4H PRN
[2019-06-01] MEDS ORDERED: Melatonin 3 MG Tab PO SCH (20:00)
[2019-06-02] MEDS: cefTRIAXone 1 GM Vial IVPUSH SCH ×2 (00:44→08:29)
[2019-06-02] MEDS: Acetaminophen 325 MG Tab PO PRN (05:26)
[2019-06-02] MEDS: Carvedilol 6.25 MG Tab PO SCH (08:27)
[2019-06-02] MEDS: Citalopram 20 MG Tab PO SCH (08:27)
[2019-06-02] MEDS: Isosorbide Mononitrate 30 MG Tab.ER PO SCH (08:28)
[2019-06-02] MEDS: Docusate Sodium 100 MG Cap PO SCH (08:28)
[2019-06-02] MEDS: risperiDONE 0.25 MG Tab PO SCH (08:29)
[2019-06-02] MEDS: amLODIPine 5 MG Tab PO SCH (08:29)
[2019-06-02] MEDS: Pantoprazole 40 MG Tab.CR PO SCH (08:29)
[2019-06-02] MEDS: Tamsulosin 0.4 MG Cap.ER PO SCH (08:29)
[2019-06-02 10:07] VITALS: BP 123/61; PULSE 74
[2019-06-02 10:44] LABS: ANION GAP 14.5 mmol/L (10-20)
[2019-06-02] MEDS ORDERED: cefTRIAXone 1 GM Vial IVPUSH SCH (11:30)
--- NOTE | 2019-06-02 11:48 | PN ---
Progress Note for LANCE HARDIN Date: 06/02/2019 Room #: VM.218 SUBJECTIVE: This is hospital day #2 on a 78-year-old from the halfway, admitted with sepsis. He was having classic urinary tract symptoms and had actually already been started on Cipro, 2 doses received before he was sent over to the ER, but he had a 103.4 fever. He was also complaining of dizziness, having blood in the urine, and urgency. Since admission, he had a bladder scan that was less than 100. He is less weak per nursing staff. Overall, was feeling better and was hopeful that they could send him back to the [facility] yesterday, but he continued to spike fevers even up until 8 p.m. he was 101.8. Otherwise, he is not having any cough. His chest x-ray did not show pneumonia. He is not having any new pain. He has a known history of dementia and actually is a patient of Dr. Pérez over there. OBJECTIVE: Vital Signs: Today, on exam, temperature is 98.5, pulse 74, blood pressure 123/61, respiratory rate 18, O2 of 96% on 2 L. General: He is in no acute distress. He is resting comfortably. Heart: Regular rate and rhythm without murmur. Lungs: His lung sounds are clear to auscultation bilaterally without crackles or wheezes. Abdomen: Nondistended and nontender. Extremities: Warm and dry. He has no edema. LABORATORY DATA: Lab work today does show his white count improved down to 12, it was 18 on admission; hemoglobin 12.3, down slightly from 13.9 yesterday; platelets in the 70s down slightly from 89 yesterday. Sodium 143, potassium 3.5, chloride 106, bicarb 26, BUN 22, creatinine 1.2, glucose 134. Lactic 1.3, it was 2.1 on admission. Calcium 7.8. Urine culture did show no growth. Blood cultures aerobic have been no growth after 1 day, but anaerobic had 3+ gram- positive cocci in clusters at about a 24-hour lisa. This was necessitating his upgrade to acute cares for continued IV antibiotics while continuing to wait for the final culture and also the fact that he has had a fever within the last 24 hours. ASSESSMENT AND PLAN: 1. Acute urinary tract infection. UA did look to be infected. Unfortunately, his culture was negative. This is likely due to him already being on Cipro, so therefore we will continue treatments with IV Rocephin. He got 2 g initially, now on 1 g every 24 hours. I will change that to q.12 hours given the bacteremia. He is improving, so we will keep type of antibiotic the same. 2. Benign prostatic hyperplasia. We will do another bladder scan today, but he has not had any evidence of retention. 3. Dementia with Alzheimer's. He is normally a halfway resident. He is doing better, up walking with staff, but given his infection, he is not stable to be discharged back to the halfway. 4. History of coronary artery disease, stable. He is not complaining of chest pain. 5. Essential hypertension. He is on his home medications. His blood pressure is controlled. 6. 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 He is on his Risperdal. 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 There is no concern for gastrointestinal bleeding. 8. Chronic kidney disease with mild anemia. This appears to be stable. We will repeat lab work tomorrow. 9. Thrombocytopenia. He has not been on any deep vein thrombosis prophylaxis with Lovenox. We will just repeat platelets tomorrow. This is possibly due to sepsis. 10.Anxiety and depression. He is on home medications. PLAN: At this point, the patient will continue acute cares. I will increase his Rocephin to q.12 hours. Anticipate that final culture results may return in the next 24 to 48 hours. Overall, if doing well, he will be stable to be discharged back to the halfway. However, if he had something like Staph aureus or Enterococcus, he may need a longer course of IV antibiotics. Discussed with Dr. Ofe Pérez and Rich Carson, so I can follow for the weekend and they will see the patient again on Tuesday. SCD's started for DVT prophylaxis MKA: 06/02/2019 11:20:23 MODL: 06/02/2019 11:42:08 /[id number] JUAN MANUEL
== END 2019-06-02 11:42 ==
LOC: VM.ED 22:40 → VM.MS 06-01 00:11
PROVIDERS: ADMIT Physician Assistant; ATTEND Physician Assistant
DX: N39.0 Urinary tract infection, site not specified (principal); N40.1 Benign prostatic hyperplasia with lower urinary tract symptoms; R35.0 Frequency of micturition; G30.9 Alzheimer's disease, unspecified; F02.80 Dementia in other diseases classified elsewhere, unspecified severity, without behavioral disturbance, psychotic disturbance, mood disturbance, and anxiety; I25.10 Atherosclerotic heart disease of native coronary artery without angina pectoris; I12.9 Hypertensive chronic kidney disease with stage 1 through stage 4 chronic kidney disease, or unspecified chronic kidney disease; N18.9 Chronic kidney disease, unspecified; D63.1 Anemia in chronic kidney disease; K22.70 Barrett's esophagus without dysplasia; E78.00 Pure hypercholesterolemia, unspecified; K59.09 Other constipation; K21.9 Gastro-esophageal reflux disease without esophagitis; F41.9 Anxiety disorder, unspecified; F32.9 Major depressive disorder, single episode, unspecified; Z88.8 Allergy status to other drugs, medicaments and biological substances; Z88.1 Allergy status to other antibiotic agents; Z79.899 Other long term (current) drug therapy
CPT/HCPCS: 36415; 71045; 80048; 80053; 81001; 83605; 83735; 84100; 85025; 85610; 86140; 87040; 87077; 87086; 96361; 96374; 96375; 96376; 99285-25; A9270-GY; G0378; J0696; J2405; J3480; J7030

== ENCOUNTER 2019-06-02 11:43 | Inpatient (IN) | payer MEDICARE, MEDICAID ==
[2019-06-02] MEDS ORDERED: Polyethylene Glycol 3350 Powder 17 GM Packet PO PRN (13:32)
[2019-06-02] MEDS ORDERED: Sodium Chloride 0.9% 10 ML Syringe FLUSH PRN (13:32)
[2019-06-02] MEDS ORDERED: Acetaminophen 325 MG Tab PO PRN (13:54)
[2019-06-02] MEDS: Carvedilol 6.25 MG Tab PO SCH (17:09)
[2019-06-02] MEDS: cefTRIAXone 1 GM Vial IV SCH (20:23)
[2019-06-02] MEDS: Docusate Sodium 100 MG Cap PO SCH (20:23)
[2019-06-02] MEDS: Melatonin 3 MG Tab PO SCH (20:23)
[2019-06-02] MEDS: Mirtazapine 15 MG Tab PO SCH (20:24)
[2019-06-03] MEDS: cefTRIAXone 1 GM Vial IV SCH (08:38)
[2019-06-03] MEDS: risperiDONE 0.25 MG Tab PO SCH (08:39)
[2019-06-03] MEDS: Isosorbide Mononitrate 30 MG Tab.ER PO SCH (08:39)
[2019-06-03] MEDS: Docusate Sodium 100 MG Cap PO SCH ×2 (08:40→19:58)
[2019-06-03] MEDS: amLODIPine 5 MG Tab PO SCH (08:40)
[2019-06-03] MEDS: Carvedilol 6.25 MG Tab PO SCH ×2 (08:40→17:15)
[2019-06-03] MEDS: Tamsulosin 0.4 MG Cap.ER PO SCH (08:41)
[2019-06-03] MEDS: Citalopram 20 MG Tab PO SCH (08:41)
[2019-06-03] MEDS: Pantoprazole 40 MG Tab.CR PO SCH (08:41)
--- NOTE | 2019-06-03 12:22 | PN ---
Progress Note for LANCE HARDIN Date: 06/03/2019 Room #: VM.218 SUBJECTIVE: This is acute hospital day #2 and observation previously, so in total hospital day #3 for a 78-year-old from the special care unit, admitted with sepsis due to a urinary tract infection. He had received some Cipro at the care center, so urine cultures were negative, but blood cultures were showing gram-positive cocci and he was still spiking fevers on the , so he was upgraded to acute yesterday. The culture is showing coagulase-negative staph, probably a contaminant. The patient has no implantable devices. No pacemaker from what I can gather. He is normally an [facility] patient. He is denying any pain today. He is not coughing, not short of breath. He is not having any trouble with voiding. His residuals have all been under 100. Overall, he is getting up, he is walking in the hallways, and he is nearly stable for discharge, however, [facility] is unable to accept him back today per report. OBJECTIVE: Vital Signs: His temperature is 98.2, his pulse 69, blood pressure 113/50, respiratory rate 18, O2 of 92% on room air. He has been afebrile now for over 24 hours. He did have a 99.4 yesterday. General: He is in no acute distress. Heart: Regular rate and rhythm. S1 and S2 without murmur. Lungs: Lung sounds are clear to auscultation bilaterally without crackles or wheezes. Abdomen: Nondistended, nontender. Extremities: Warm and dry. No edema. Mental Status: He is disorientated x3. He has no idea he is in [place]. He tells me he lives in [facility]. He did forget that he ate breakfast. LABORATORY DATA: Lab work today was not yet completed. Yesterday, white count was improving down to 12. ASSESSMENT AND PLAN: 1. Sepsis secondary to a urinary tract infection. I tried to get a culture on the urine, but it was no longer available. 2. Acute urinary tract infection without evidence of retention, but in a male patient we would recommend about a 5-day course of treatment. He has so far already received 3 days. We will continue the IV Rocephin, and on discharge, potentially could just go back on the Cipro that was started before. 3. Benign prostatic hyperplasia without retention. He is on Flomax. 4. Dementia with Alzheimer's and behavioral disturbance. He is on his Risperdal. He is starting to need some redirection. 5. Essential hypertension, controlled on his home medications. 6. History of coronary artery disease, stable without chest pain. 7. History of Romero esophagus, on Protonix. 8. Chronic kidney disease with mild anemia. We will repeat lab work tomorrow. 9. Thrombocytopenia, possibly due to sepsis. He was not on Lovenox. We did put him on sequential compression devices for deep vein thrombosis prophylaxis. 10.Anxiety and depression, on home medications. PLAN: At this point, the patient will continue acute cares with IV Rocephin. Now that his blood cultures were negative, I will go back to 1 g every 24 hours. We will repeat his lab work tomorrow and anticipate he will be stable for discharge back to [facility] with either Dr. Ofe Pérez, or Rich Carson. MKA: 06/03/2019 11:57:45 MODL: 06/03/2019 12:12:57 /[id number]
[2019-06-03] MEDS ORDERED: Haloperidol Lactate 5 MG/ML SDV IM PRN (17:28)
[2019-06-03] MEDS: Melatonin 3 MG Tab PO SCH (19:58)
[2019-06-03] MEDS: Mirtazapine 15 MG Tab PO SCH (19:58)
[2019-06-04 07:22] LABS: CHLORIDE,CL 106 mmol/L (98-107); SODIUM,NA 143 mmol/L (136-145)
[2019-06-04 07:23] LABS: ANION GAP 13.5 mmol/L (10-20)
[2019-06-04] MEDS: amLODIPine 5 MG Tab PO SCH (07:30)
[2019-06-04] MEDS: Docusate Sodium 100 MG Cap PO SCH (07:30)
[2019-06-04] MEDS: Tamsulosin 0.4 MG Cap.ER PO SCH (07:30)
[2019-06-04] MEDS: Pantoprazole 40 MG Tab.CR PO SCH (07:30)
[2019-06-04] MEDS: risperiDONE 0.25 MG Tab PO SCH (07:30)
[2019-06-04] MEDS: Isosorbide Mononitrate 30 MG Tab.ER PO SCH (07:30)
[2019-06-04] MEDS: Citalopram 20 MG Tab PO SCH (07:30)
[2019-06-04] MEDS: Carvedilol 6.25 MG Tab PO SCH (07:30)
--- NOTE | 2019-06-04 07:35 | PCM.DCSUM1 ---
Discharge Summary - Hospital Course HPI Initial Comments: Pt. presented to ER at [facility] on 06/01/2019 via EMS. Pt. is a resident at [facility]. Pt. had been experiencing urinary urgency, frequency and dysuria for 24 hours. He was started on Cipro on 06/01/2019 and has had 2 doses of the medication orally. Staff was concerned that he had been spiking fevers-T max today 104.4. He had been receiving Tylenol for the fever. Pt. only complaint was that of feeling fatigued and dizzy. He denied any chest pain or shortness of breath. No nausea, vomiting, or diarrhea. No melena, hematochezia, or hematemesis. He has been able to hold down fluids. Pt. denies any abdominal, back or flank pain. He has been alert but fatigued and has been answering all questions appropriately. Diagnosis: Stroke: No Modified Tebbetts Scale: No Symptoms at All Modified Tebbetts Scale Score: 0 - Discharge Data Discharge Date: 06/04/19 Discharge Disposition: DC/Tfer to [facility] Condition: Good - Referral to Home Health Primary Care Physician: Abhay Tolentino MD - Discharge Diagnosis/Problem(s) (1) Sepsis SNOMED Code(s): 56858239 ICD Code: A41.9 - SEPSIS, UNSPECIFIED ORGANISM Status: Acute Priority: High Current Visit: Yes Onset Date: ~05/31/19 Qualifiers: Sepsis type: sepsis due to unspecified organism Sepsis acute organ dysfunction status: without acute organ dysfunction Qualified Code(s): A41.9 - Sepsis, unspecified organism (2) BPH (benign prostatic hyperplasia) SNOMED Code(s): 476291195 ICD Code: N40.0 - BENIGN PROSTATIC HYPERPLASIA WITHOUT LOWER URINRY TRACT SYMP Status: Chronic Priority: Low Current Visit: No Qualifiers: Lower urinary tract symptom presence: symptoms present Lower urinary tract symptom detail: urinary frequency Qualified Code(s): N40.1 - Benign prostatic hyperplasia with lower urinary tract symptoms; R35.0 - Frequency of micturition (3) Dementia SNOMED Code(s): 42687756 ICD Code: F03.90 - UNSPECIFIED DEMENTIA WITHOUT BEHAVIORAL DISTURBANCE Status: Chronic Current Visit: No Qualifiers: Dementia type: Alzheimer's disease Alzheimer's disease onset: late-onset Dementia behavioral disturbance: without behavioral disturbance Qualified Code (s): G30.1 - Alzheimer's disease with late onset; F02.80 - Dementia in other diseases classified elsewhere without behavioral disturbance (4) HTN (hypertension) SNOMED Code(s): 07791689 ICD Code: I10 - ESSENTIAL (PRIMARY) HYPERTENSION Status: Chronic Priority : Low Current Visit: No Qualifiers: Hypertension type: essential hypertension Qualified Code(s): I10 - Essential (primary) hypertension (5) CAD (coronary artery disease) SNOMED Code(s): 16952560 ICD Code: I25.10 - ATHSCL HEART DISEASE OF [place] CORONARY ARTERY W/O ANG PCTRS Status: Chronic Priority: Low Current Visit: No Qualifiers: Coronary Disease-Associated Artery/Lesion type: [place] artery [place] vs. transplanted heart: [place] heart Associated angina: without angina Qualified Code(s): I25.10 - Atherosclerotic heart disease of [place] coronary artery without angina pectoris (6) Barretts esophagus SNOMED Code(s): 866921997 ICD Code: K22.70 - LYON'S ESOPHAGUS WITHOUT DYSPLASIA Status: Chronic Priority: Low Current Visit: Yes Qualifiers: Lyon's esophagus type: without dysplasia Qualified Code(s): K22.70 - Lyon's esophagus without dysplasia (7) CKD (chronic kidney disease) SNOMED Code(s): 911719122 ICD Code: N18.9 - CHRONIC KIDNEY DISEASE, UNSPECIFIED Status: Chronic Priority: Low Current Visit: Yes Qualifiers: Chronic kidney disease stage: unspecified stage Qualified Code(s): N18.9 - Chronic kidney disease, unspecified (8) Depression with anxiety SNOMED Code(s): 986205273 ICD Code: F41.8 - OTHER SPECIFIED ANXIETY DISORDERS Status: Chronic Priority: Low Current Visit: No (9) UTI (urinary tract infection) SNOMED Code(s): 81318590 ICD Code: N39.0 - URINARY TRACT INFECTION, SITE NOT SPECIFIED Status: Acute Priority: Medium Current Visit: Yes Qualifiers: Urinary tract infection type: acute cystitis Hematuria presence: with hematuria Qualified Code(s): N30.01 - Acute cystitis with hematuria - Patient Summary/Data Operative Procedure(s) Performed: None Labs Pending at D/C: None Recommended Follow-up Testing/Procedures: None Planned Operative Procedure(s) after DC: None Hospital Course: Patient remained hemodynamically stable and afebrile. Patient did have one fall yesterday without any acute injuries. Did complain of right wrist pain, so xray results are pending. Had some behavioral issues in which patient got IM Haldol. Tolerated diet without any problems. No issues with urination or BM's. Labs stable at time of discharge. - Patient Instructions Diet: Regular Diet as Tolerated Activity: As Tolerated Driving: Do Not Drive Showering/Bathing: May Shower Notify Provider of: Fever, Nausea and/or Vomiting - Discharge Plan *PRESCRIPTION DRUG MONITORING PROGRAM REVIEWED*: Not Applicable *COPY OF PRESCRIPTION DRUG MONITORING REPORT IN PATIENT WENDY: Not Applicable Home Medications: Home Meds Isosorbide Mononitrate [Imdur] 30 mg PO DAILY 12/22/15 [History] Nitroglycerin [Nitrostat] 0.4 mg PO ASDIRECTED PRN 12/22/15 [History] Tamsulosin [Flomax] 0.4 mg PO DAILY 08/19/18 [History] amLODIPine Besylate [Amlodipine Besylate] 5 mg PO DAILY 08/19/18 [History] carvediloL [Carvedilol] 6.25 mg PO BIDMEALS 08/19/18 [History] Polyethylene Glycol 3350 [MiraLAX] 17 gram PO DAILY PRN 10/02/18 [History] Docusate Sodium [Colace] 100 mg PO BID 06/01/19 [History] Mirtazapine 15 mg PO DAILY 06/01/19 [History] Pantoprazole Sodium [Protonix] 40 mg PO DAILY 06/01/19 [History] risperiDONE 0.5 mg PO DAILY 06/01/19 [History] Acetaminophen [Tylenol] 650 mg PO Q4HR PRN 06/02/19 [History] Citalopram Hydrobromide [Celexa] 20 mg PO DAILY 06/02/19 [History] Melatonin 6 mg PO BEDTIME 06/02/19 [History] Ciprofloxacin HCl [Cipro] 500 mg PO BID 3 Days #0 06/04/19 [Rx] Oxygen Therapy Mode: Room Air Patient Handouts: Urinary Frequency, Adult Referrals: Ofe Pérez DO [Physician] - - Discharge Summary/Plan Comment DC Time >30 min.: Yes Discharge Summary/Plan Comment: Patient will be discharged back to the care home today. Patient is doing much better. Will continue Cipro 500 mg BID for three more days. No changes with any other care home medications. Would like patient to follow up with PCP in one week for a follow up. - General Info Date of Service: 06/04/19 Admission Dx/Problem (Free Text: Sepsis 2/2 UTI BPH HTN Dementia Hx of CAD CKD with anemia Anxiety and Depression Functional Status: Reports: Pain Controlled, Tolerating Diet, Urinating. Denies : New Symptoms Numeric/FACES Score: 0 - Review of Systems General: Denies: Fever, Chills Pulmonary: Denies: Shortness of Breath, Cough Cardiovascular: Denies: Chest Pain, Palpitations Gastrointestinal: Denies: Abdominal Pain, Nausea, Vomiting Skin: Reports: No Symptoms Neurological: Reports: No Symptoms - Patient Data Vitals - Most Recent: Last Vital Signs Temp 98.5 F 06/04/19 05:38 Pulse 78 06/04/19 07:30 Resp 19 06/04/19 05:38 BP 128/68 06/04/19 07:30 Pulse Ox 91 L 06/04/19 05:38 Weight - Most Recent: 288 lb I&O - Last 24 hours: Intake & Output 06/03/19 06/04/19 06/04/19 22:59 06:59 14:59 Intake Total 40 200 Output Total 700 Balance 40 -500 Lab Results - Last 24 hrs: Laboratory Results - last 24 hr 06/04/19 06/04/19 Range/Units 06:52 06:52 WBC 8.4 (4.0-10.0) x10^3/uL RBC 4.19 L (4.5-6.0) x10^6/uL Hgb 12.4 L (14.0-18.0) g/dL Hct 36.4 L (40.0-52.0) % MCV 86.9 (78.0-93.0) fL MCH 29.6 (26.0-32.0) pg MCHC 34.1 (32.0-36.0) g/dL RDW Coeff of Frantz 13.7 (10.0-15.0) % Plt Count 127 L (130-400) x10^3/uL Neut % (Auto) 57.8 (50.0-80.0) % Lymph % (Auto) 32.6 (25.0-50.0) % [place] % (Auto) 7.0 (2.0-11.0) % Eos % (Auto) 2.4 (0.0-4.0) % Baso % (Auto) 0.2 (0.2-1.2) % Sodium 143 (136-145) mmol/L Potassium 3.5 (3.5-5.1) mmol/L Chloride 106 (98-107) mmol/L Carbon Dioxide 27 (21-32) mmol/L Anion Gap 13.5 (10-20) mmol/L BUN 19 H (7-18) mg/dL Creatinine 1.0 (0.70-1.30) mg/dL Est Cr Clr Drug Dosing 53.81 mL/min Estimated GFR (MDRD) > 60 Glucose 101 (74-106) mg/dL Calcium 7.8 L (8.5-10.1) mg/dL Med Orders - Current: Current Medications Acetaminophen (Tylenol) 650 mg PO Q4H PRN PRN Reason: Fever Last Admin: 06/02/19 17:09 Dose: 650 mg Amlodipine Besylate (Norvasc) 5 mg PO DAILY [facility] Last Admin: 06/04/19 07:30 Dose: 5 mg Carvedilol (Coreg) 6.25 mg PO BIDMEALS [facility] Last Admin: 06/04/19 07:30 Dose: 6.25 mg Ceftriaxone Sodium (Rocephin) 1 gm IV Q24H [facility] Last Admin: 06/04/19 07:30 Dose: 1 gm Citalopram Hydrobromide (Celexa) 20 mg PO DAILY [facility] Last Admin: 06/04/19 07:30 Dose: 20 mg Docusate Sodium (Colace) 100 mg PO BID [facility] Last Admin: 06/04/19 07:30 Dose: 100 mg Haloperidol Lactate (Haldol) 5 mg IM ONETIME PRN PRN Reason: Agitation Isosorbide Mononitrate (Imdur) 30 mg PO DAILY [facility] Last Admin: 06/04/19 07:30 Dose: 30 mg Melatonin (Melatonin) 6 mg PO BEDTIME [facility] Last Admin: 06/03/19 19:58 Dose: 6 mg Mirtazapine (Remeron) 15 mg PO BEDTIME [facility] Last Admin: 06/03/19 19:58 Dose: 15 mg Pantoprazole Sodium (Protonix) 40 mg PO DAILY [facility] Last Admin: 06/04/19 07:30 Dose: 40 mg Polyethylene Glycol (Miralax) 17 gm PO DAILY PRN PRN Reason: Constipation Risperidone (Risperidal) 0.5 mg PO DAILY [facility] Last Admin: 06/04/19 07:30 Dose: 0.5 mg Sodium Chloride (Saline Flush) 10 ml FLUSH ASDIRECTED PRN PRN Reason: Keep Vein Open Last Admin: 06/03/19 08:38 Dose: 10 ml Tamsulosin HCl (Flomax) 0.4 mg PO DAILY [facility] Last Admin: 06/04/19 07:30 Dose: 0.4 mg Discontinued Medications Ceftriaxone Sodium (Rocephin) 1 gm IV Q12HR [facility] Last Admin: 06/03/19 08:38 Dose: 1 gm - Exam Quality Assessment: Denies: Skin Breakdown General: Reports: Alert, Cooperative, No Acute Distress Lungs: Reports: Clear to Auscultation, Normal Respiratory Effort, Decreased Breath Sounds Cardiovascular: Reports: Regular Rate, Regular Rhythm, No Murmurs GI/Abdominal Exam: Soft, Non-Tender, Abnormal Bowel Sounds (Hypoactive) Skin: Reports: Warm, Dry, Intact Neurological: Reports: No New Focal Deficit *Q Meaningful Use (DIS) - VTE *Q VTE Mechanical Contraindications *Q: At Risk for Falls
[2019-06-04] MEDS ORDERED: cefTRIAXone 1 GM Vial IV SCH (08:00)
--- NOTE | 2019-06-04 08:27 | CR ---
[id number] RAD/RAD Wrist Right 2V EXAM: RIGHT WRIST 2 VIEWS INDICATION: WRIST PAIN COMPARISON: None. DISCUSSION: Mild radiocarpal and moderate triscaphe and first carpometacarpal osteoarthritis. No acute fracture or dislocation is identified. Soft tissue swelling is suggested along the radial aspect of the wrist and distal forearm. IMPRESSION: 1. Mild to moderate osteoarthritis. Amado Brink MD 06/04/19 0826 Thank you for allowing us to participate in the care of your patient.
[2019-06-04 10:38] VITALS: BP 127/63; PULSE 67
== END 2019-06-04 12:00 | DRG 872 ==
LOC: VM.MS 11:43
PROVIDERS: ADMIT Internal Medicine; ATTEND Nurse Practitioner Family
DX: A41.9 Sepsis, unspecified organism (principal); N30.01 Acute cystitis with hematuria; N40.1 Benign prostatic hyperplasia with lower urinary tract symptoms; R35.0 Frequency of micturition; F03.90 Unspecified dementia, unspecified severity, without behavioral disturbance, psychotic disturbance, mood disturbance, and anxiety; G30.1 Alzheimer's disease with late onset; D69.6 Thrombocytopenia, unspecified; D64.9 Anemia, unspecified; I25.10 Atherosclerotic heart disease of native coronary artery without angina pectoris; K22.70 Barrett's esophagus without dysplasia; N18.9 Chronic kidney disease, unspecified; F41.8 Other specified anxiety disorders; Z79.2 Long term (current) use of antibiotics; Z79.899 Other long term (current) drug therapy; I12.9 Hypertensive chronic kidney disease with stage 1 through stage 4 chronic kidney disease, or unspecified chronic kidney disease
CPT/HCPCS: 36415; 51798; 73100-RT; 80048; 85025; A9270-GY; J0696

== ENCOUNTER 2019-08-07 05:08 | Emergency (ER) | payer MEDICARE, MEDICAID ==
--- NOTE | 2019-08-07 05:22 | EDM.PDOC ---
ED HPI GENERAL MEDICAL PROBLEM - General Chief Complaint: Chest Pain Stated Complaint: Chest Pain Time Seen by Provider: 08/07/19 05:10 Source of Information: Reports: Patient, Senior Living Records, Other (sleep study tech ) History Limitations: Reports: No Limitations - History of Present Illness INITIAL COMMENTS - FREE TEXT/NARRATIVE: Patient states tonight approximately 30 minutes after checking in for a sleep study maybe about 8 or 830 that he started having chest pain under bilateral anterior part of his chest about a 5 out of 10 at its worse with a deep breath for the sleep study patient mention chest pain about 2 AM but did not want to go to the ER then the patient presented here approximately about 5 AM stating he had chest pain and maybe wanted to be seen. He describes the chest pain under bilateral breast more so on the right than the left as a sharp 5 out of 10 pain with no radiation no shortness of breath no nausea and vomiting and he says it only happens when taking a deep breath He states he had a cardiac cath approximately 5 to 6 years ago which was normal he has never had any heart issues and is seen a bus driver multiple times No family history of any cardiac events Patient was noted walking down here with a roller walker in no acute distress Onset: Today Duration: Hour(s): Location: Reports: Chest Quality: Reports: Burning, Stabbing Severity: Mild Improves with: Reports: None Worsens with: Reports: Breathing Associated Symptoms: Reports: No Other Symptoms Chest Pain Pain Score (Numeric/FACES): 5 - Related Data Allergies Allergy/AdvReac Type Severity Reaction Status Date / Time rosuvastatin Allergy Cannot Verified 08/07/19 08:03 Remember terbinafine Allergy Nausea Verified 08/07/19 08:04 adenosine AdvReac Hallucinati Verified 08/07/19 08:03 ons clindamycin AdvReac Diarrhea Verified 08/07/19 08:03 gluten AdvReac Stomach Verified 08/07/19 08:03 Upset lisinopril AdvReac Cough Verified 08/07/19 08:03 Home Meds: Home Meds Isosorbide Mononitrate [Imdur] 30 mg PO DAILY 12/22/15 [History] Nitroglycerin [Nitrostat] 0.4 mg PO ASDIRECTED PRN 12/22/15 [History] Tamsulosin [Flomax] 0.4 mg PO DAILY 08/19/18 [History] amLODIPine Besylate [Amlodipine Besylate] 5 mg PO DAILY 08/19/18 [History] carvediloL [Carvedilol] 6.25 mg PO BIDMEALS 08/19/18 [History] polyethylene glycoL 3350 [MiraLAX] 17 gram PO DAILY PRN 10/02/18 [History] Docusate Sodium [Colace] 100 mg PO BID 06/01/19 [History] Pantoprazole Sodium [Protonix] 40 mg PO DAILY 06/01/19 [History] risperiDONE 0.5 mg PO DAILY 06/01/19 [History] Acetaminophen [Tylenol] 650 mg PO Q4HR PRN 06/02/19 [History] Melatonin 6 mg PO BEDTIME 06/02/19 [History] Calcium Citrate/Vitamin D3 [Calcium Citrate - Vit D Tablet] 1 tab BID 08/07/19 [ History] Escitalopram [Lexapro] 10 mg DAILY 08/07/19 [History] Mirtazapine 15 mg DAILY 08/07/19 [History] Past Medical History HEENT History: Reports: Impaired Vision Other HEENT History: wears glasses Cardiovascular History: Reports: High Cholesterol, Hypertension Respiratory History: Reports: Sleep Apnea Gastrointestinal History: Reports: Chronic Constipation, GERD Other Gastrointestinal History: diverticulitis Genitourinary History: Reports: BPH Other Genitourinary History: CKD Other Neuro History: memory loss Psychiatric History: Reports: Depression Endocrine/Metabolic History: Reports: None Hematologic History: Reports: None Immunologic History: Reports: None Oncologic (Cancer) History: Reports: None Dermatologic History: Reports: None - Past Surgical History Head Surgeries/Procedures: Reports: None HEENT Surgical History: Reports: Tonsillectomy GI Surgical History: Reports: Colonoscopy, Hernia Repair/Other Social & Family History - Family History Family Medical History: Noncontributory - Caffeine Use Caffeine Use: Reports: Coffee ED ROS GENERAL - Review of Systems Review Of Systems: See Below Constitutional: Reports: No Symptoms. Denies: Fever, Chills, Malaise, Weakness , Fatigue, Diaphoresis HEENT: Reports: No Symptoms Respiratory: Reports: No Symptoms, Pleuritic Chest Pain. Denies: Shortness of Breath, Wheezing Cardiovascular: Reports: Chest Pain. Denies: Blood Pressure Problem, Claudication, Dyspnea on Exertion, Edema, Lightheadedness, Orthopnea, Palpitations, PND, Syncope Endocrine: Reports: No Symptoms. Denies: Fatigue GI/Abdominal: Reports: No Symptoms : Reports: No Symptoms Musculoskeletal: Reports: No Symptoms Skin: Reports: No Symptoms Neurological: Reports: No Symptoms Psychiatric: Reports: No Symptoms Hematologic/Lymphatic: Reports: No Symptoms Immunologic: Reports: No Symptoms ED EXAM, GENERAL - Physical Exam Exam: See Below Exam Limited By: No Limitations General Appearance: Alert, WD/WN, No Apparent Distress Eye Exam: Bilateral Eye: EOMI, PERRL Nose: Normal Inspection, Normal Mucosa, No Blood Throat/Mouth: Normal Inspection, Normal Lips, Normal Teeth, Normal Gums, Normal Oropharynx, Normal Voice, No Airway Compromise Head: Atraumatic Course - Vital Signs Text/Narrative:: CBC BMP troponin EKG chest x-ray PT PTT INR Second troponin ordered for 830 325 aspirin given patient recheck states no pain Patient rechecked again no pain sleeping no acute distress Second troponin actually trended down patient will be discharged home told to follow-up with his primary care provider rechecked at this time no pain Last Recorded V/S: Last Vital Signs Temp 36.2 C 08/07/19 08:20 Pulse 79 08/07/19 08:20 Resp 14 08/07/19 08:20 BP 134/78 08/07/19 08:20 Pulse Ox 98 08/07/19 08:20 - Orders/Labs/Meds Labs: Laboratory Tests 08/07/19 08/07/19 08/07/19 Range/Units 05:29 05:29 05:29 WBC 7.3 (4.0-10.0) x10^3/uL RBC 4.56 (4.5-6.0) x10^6/uL Hgb 13.3 L (14.0-18.0) g/dL Hct 38.8 L (40.0-52.0) % MCV 85.1 (78.0-93.0) fL MCH 29.2 (26.0-32.0) pg MCHC 34.3 (32.0-36.0) g/dL RDW Coeff of Frantz 14.1 (10.0-15.0) % Plt Count 128 L (130-400) x10^3/uL Neut % (Auto) 45.1 L (50.0-80.0) % Lymph % (Auto) 42.5 (25.0-50.0) % [place] % (Auto) 7.3 (2.0-11.0) % Eos % (Auto) 4.7 H (0.0-4.0) % Baso % (Auto) 0.4 (0.2-1.2) % PT 10.7 (10.0-12.8) SEC INR 0.9 L (2.0-3.5) Sodium 143 (136-145) mmol/L Potassium 3.8 (3.5-5.1) mmol/L Chloride 106 (98-107) mmol/L Carbon Dioxide 28 (21-32) mmol/L Anion Gap 12.8 (10-20) mmol/L BUN 19 H (7-18) mg/dL Creatinine 1.2 (0.70-1.30) mg/dL Est Cr Clr Drug Dosing TNP Estimated GFR (MDRD) 59 Glucose 104 (74-106) mg/dL Calcium 8.1 L (8.5-10.1) mg/dL Troponin I 0.052 (<=0.056) ng/mL 08/07/19 Range/Units 08:29 WBC (4.0-10.0) x10^3/uL RBC (4.5-6.0) x10^6/uL Hgb (14.0-18.0) g/dL Hct (40.0-52.0) % MCV (78.0-93.0) fL MCH (26.0-32.0) pg MCHC (32.0-36.0) g/dL RDW Coeff of Frantz (10.0-15.0) % Plt Count (130-400) x10^3/uL Neut % (Auto) (50.0-80.0) % Lymph % (Auto) (25.0-50.0) % [place] % (Auto) (2.0-11.0) % Eos % (Auto) (0.0-4.0) % Baso % (Auto) (0.2-1.2) % PT (10.0-12.8) SEC INR (2.0-3.5) Sodium (136-145) mmol/L Potassium (3.5-5.1) mmol/L Chloride (98-107) mmol/L Carbon Dioxide (21-32) mmol/L Anion Gap (10-20) mmol/L BUN (7-18) mg/dL Creatinine (0.70-1.30) mg/dL Est Cr Clr Drug Dosing Estimated GFR (MDRD) Glucose (74-106) mg/dL Calcium (8.5-10.1) mg/dL Troponin I 0.046 (<=0.056) ng/mL Meds: Medications Discontinued Medications Generic Name Dose Route Start Last Admin Trade Name Freq PRN Reason Stop Dose Admin Aspirin 324 mg 08/07/19 06:10 08/07/19 06:14 Aspirin PO 08/07/19 06:11 324 mg ONETIME ONE Administration Departure - Departure Time of Disposition: 09:20 Disposition: DC/Tfer to Assisted Care 63 Reason for Transfer *Q: Other (resident at [facility]) Condition: Good Clinical Impression: Chest pain Instructions: Nonspecific Chest Pain Referrals: Ofe Pérez DO [Primary Care Provider] - Forms: ED Department Discharge Additional Instructions: Follow-up with your regular doctor in the next 24 to 48 hours Return to the ER if anything changes or gets worse Sepsis Event Note - Focused Exam Vital Signs: Vital Signs Temp Pulse Resp BP Pulse Ox 08/07/19 08:20 36.2 C 79 14 134/78 98 Date Exam was Performed: 08/07/19 Time Exam was Performed: 16:12 - Problem List & Annotations (1) Chest pain SNOMED Code(s): 58083957 Code(s): R07.9 - CHEST PAIN, UNSPECIFIED Status: Acute
[2019-08-07 06:00] LABS: CHLORIDE,CL 106 mmol/L (98-107); SODIUM,NA 143 mmol/L (136-145)
[2019-08-07 06:01] LABS: ANION GAP 12.8 mmol/L (10-20)
[2019-08-07] MEDS ORDERED: Aspirin 81 MG Tab.Chew PO ONE (06:10)
--- NOTE | 2019-08-07 07:48 | CR ---
[id number] RAD/RAD Chest PA or AP 1V EXAM: SINGLE VIEW CHEST. INDICATION: CHEST PAIN COMPARISON: CORRELATION IS MADE WITH THE EXAM OF MAY 31, 2019 FINDINGS: The lungs are clear The cardiomediastinal contour is stable IMPRESSION: NO ACUTE PROCESS Calin Hanson MD 08/07/19 0745 Thank you for allowing us to participate in the care of your patient.
[2019-08-07 08:22] VITALS: BP 134/78; PULSE 79
== END 2019-08-07 09:22 ==
LOC: VM.ED 05:08
DX: R07.9 Chest pain, unspecified (principal); I12.9 Hypertensive chronic kidney disease with stage 1 through stage 4 chronic kidney disease, or unspecified chronic kidney disease; N18.9 Chronic kidney disease, unspecified; E78.00 Pure hypercholesterolemia, unspecified; K21.9 Gastro-esophageal reflux disease without esophagitis; F32.9 Major depressive disorder, single episode, unspecified; Z79.899 Other long term (current) drug therapy; Z88.1 Allergy status to other antibiotic agents; Z88.8 Allergy status to other drugs, medicaments and biological substances
CPT/HCPCS: 36415; 71045; 80048; 84484; 85025; 85610; 99285; A9270; 99284-GF

== ENCOUNTER 2020-03-20 14:04 | Inpatient (IN) | payer MEDICARE, MEDICAID, OTHER ==
[2020-03-20] MEDS ORDERED: Bisacodyl 5 MG Tab PO PRN (14:40)
[2020-03-20] MEDS ORDERED: Aluminum Hydroxide/Magnesium Hydroxide/Simethicone Susp 30 ML Cup PO PRN (14:40)
[2020-03-20] MEDS ORDERED: Nitroglycerin 0.4 MG Tab.SL SL PRN (14:40)
[2020-03-20] MEDS ORDERED: Ondansetron 4 MG Tab.DIS PO PRN (14:40)
[2020-03-20] MEDS ORDERED: cefTRIAXone 2 GM Vial IV ONE (15:00)
[2020-03-20] MEDS ORDERED: Polyethylene Glycol 3350 Powder 17 GM Packet PO PRN (15:03)
[2020-03-20] MEDS: Furosemide 40 MG Tab PO SCH (15:26)
[2020-03-20] MEDS: Sodium Chloride 0.9% 1,000 ML IV SCH (15:26)
[2020-03-20] MEDS: Sodium Chloride 0.9% 10 ML Syringe FLUSH PRN (15:26)
[2020-03-20 16:18] LABS: ANION GAP 15.3 mmol/L (10-20)
[2020-03-20] MEDS: hydrOXYzine HCl 25 MG Tab PO PRN (18:08)
[2020-03-20] MEDS: Carvedilol 6.25 MG Tab PO SCH (18:08)
[2020-03-20] MEDS: Docusate Sodium 100 MG Cap PO SCH (20:14)
[2020-03-20] MEDS: Melatonin 3 MG Tab PO SCH (20:14)
[2020-03-21] MEDS ORDERED: amLODIPine 5 MG Tab PO SCH (08:00)
[2020-03-21] MEDS: Furosemide 40 MG Tab PO SCH (08:25)
[2020-03-21] MEDS: Isosorbide Mononitrate 30 MG Tab.ER PO SCH (08:25)
[2020-03-21] MEDS: hydrOXYzine HCl 25 MG Tab PO PRN ×3 (08:25→19:24)
[2020-03-21] MEDS: Pantoprazole 40 MG Tab.CR PO SCH (08:26)
[2020-03-21] MEDS: Docusate Sodium 100 MG Cap PO SCH ×2 (08:26→19:24)
[2020-03-21] MEDS: Carvedilol 6.25 MG Tab PO SCH ×2 (08:26→17:21)
[2020-03-21] MEDS: Tamsulosin 0.4 MG Cap.ER PO SCH (08:26)
[2020-03-21] MEDS: Citalopram 20 MG Tab PO SCH (08:26)
[2020-03-21] MEDS: cefTRIAXone 1 GM Vial IV SCH (12:40)
--- NOTE | 2020-03-21 14:28 | HP ---
Admission history to the acute care floor at [facility]. CHIEF COMPLAINT: Open leg wounds. HISTORY OF PRESENT ILLNESS: A 79-year-old male patient from a local assisted who is well known to me is being admitted to the acute care floor at [facility] for nonhealing open wounds to bilateral lower extremities as well as cellulitis. The patient had been seen by me in the clinic on 2 separate occasions in which he failed outpatient therapy. The patient has been treated with Keflex for 10 days as well as Bactrim for 10 days, all of which have not helped to heal the wounds. The patient has not had any known fevers or chills. The patient does have significant swelling of the lower extremities. The patient was being seen by the wound care nurse at the assisted. Wound care consisted of Telfa and Kerlix; however, the cellulitis has continued to spread. PAST MEDICAL HISTORY: 1. Alzheimer disease. 2. Coronary artery disease. 3. Chronic kidney disease. 4. Essential hypertension. 5. Heart failure. 6. Obstructive sleep apnea. 7. Hypercholesteremia. 8. Psychosis. 9. BPH. 10.Generalized anxiety disorder. 11.Major depressive disorder. 12.History of an [place]. 13.PTSD. 14.Vascular dementia. PAST SURGICAL HISTORY: Unknown. FAMILY HISTORY: Noncontributory. SOCIAL HISTORY: The patient currently lives at a local assisted. The patient does not smoke cigarettes or drink any alcohol. ALLERGIES: 1. Adenosine. 2. Clindamycin. 3. Lisinopril. 4. Rosuvastatin. 5. Terbinafine. MEDICATIONS: 1. Milk of magnesia 30 mL every 4 hours as needed. 2. Amlodipine 5 mg 1 tablet p.o. daily. 3. Dulcolax 5 mg p.o. daily as needed. 4. Carvedilol 6.25 mg 1 tablet p.o. twice daily. 5. Docusate sodium 100 mg 1 tablet p.o. twice daily. 6. Lexapro 10 mg 1 tablet p.o. daily. 7. Imdur 30 mg 1 tablet p.o. daily. 8. Melatonin 6 mg 1 tablet p.o. daily at bedtime. 9. Nitroglycerin 0.4 mg sublingual every 5 minutes as needed. 10.Zofran 4 mg 1 tablet p.o. every 6 hours as needed. 11.Pantoprazole 20 mg 1 tablet p.o. daily as needed. 12.MiraLAX 17 g 1 tablet p.o. daily. 13.Risperidone 0.5 mg 1 tablet p.o. daily. 14.Tamsulosin 0.4 mg 1 tablet p.o. daily. REVIEW OF SYSTEMS: General: Negative. Skin: Wounds to lower extremities. Respiratory: Negative. Cardiovascular: Negative. GI: Negative. Neurological: Negative. PHYSICAL EXAMINATION: Vital Signs: Height is 6 feet, weight is 296 pounds. Temperature 98.1, blood pressure 124/64, respirations 17, heart rate 67, pulse oximetry is 96% on room air. General: The patient is alert. The patient is cooperative. The patient does not appear to be in any acute distress. Skin: The patient has open wounds on the bilateral lower shins with cellulitis. There is some blistering. Minimal weeping. Respiratory: Lungs are significantly decreased, but clear throughout. Cardiovascular: Regular rate and rhythm. No murmur. Abdomen: Obese, hypoactive x4, nontender. Neurological: The patient is alert. The patient is cooperative. LABORATORY WORK: Pending. ASSESSMENT: 1. Cellulitis. 2. Bilateral lower extremity edema. 3. Coronary artery disease. 4. Hypertension. 5. Hyperlipidemia. 6. Benign prostatic hyperplasia. 7. Posttraumatic stress disorder. 8. Vascular dementia. 9. Alzheimer's. 10.Psychosis. PLAN: The patient will be admitted to the acute care floor at [facility] due to failed outpatient therapy. The patient will be requiring IV antibiotics with some IV fluids. We will diurese the patient with 40 mg of IV Lasix daily for his edema in the lower extremities. We will continue all other medications the same from the assisted. The patient is a code 2. The patient does not wish to transfer to a higher level of care should the need arise. I anticipate the admission to be 3 to 4 days. This patient will transfer back to the assisted when appropriate. This patient was seen and examined by me as an [facility] provider. TB: 03/20/2020 14:53:42 MODL: 03/20/2020 19:29:21 /[id number]
[2020-03-21] MEDS: risperiDONE 0.25 MG Tab PO SCH ×2 (17:21→19:24)
[2020-03-21] MEDS ORDERED: Haloperidol Lactate 5 MG/ML SDV IV PRN (19:18)
[2020-03-21] MEDS: Sodium Chloride 0.9% 1,000 ML IV SCH (19:23)
[2020-03-21] MEDS: Melatonin 3 MG Tab PO SCH (19:24)
--- NOTE | 2020-03-21 19:59 | PN ---
Progress Note for LANCE HARDIN JR Date: 03/21/2020 Room #: VM.203 CHIEF COMPLAINT: 1. Cellulitis. 2. Leg wounds. HISTORY OF PRESENT ILLNESS: A 79-year-old male patient, hospital day #2. He is admitted to the acute care floor at [facility] for failing outpatient treatment of bilateral lower extremity ulcers and leg swelling. The patient offers no specific concerns today. The patient states that he is feeling better. The patient did have some issues overnight last night with , where he discontinued his own IV. The patient has not had any fevers or chills. The patient is currently on IV Rocephin for his infection. The patient was started on 40 mg of p.o. Lasix yesterday, which seemed to help. OBJECTIVE: Vital Signs: Weight 287. Temperature 97.9, pulse is 65, blood pressure 134/63, respiratory rate 20, oxygen 92% on room air. General: The patient is cooperative. The patient is alert. The patient does not appear to be in any acute distress. Respiratory: Diminished throughout, otherwise clear. Cardiovascular: Regular rate and rhythm. No murmur. Skin: Open areas on bilateral lower shins are much improved. His lower leg swelling has also improved with the Lasix. Neurological: The patient is confused, which is his baseline. The patient is alert. Sensation is intact. LABORATORY WORK: 1. CMP: White blood cell count 9.3, hemoglobin 13.6, hematocrit 39.6, platelets are 144,000. 2. CMP: Sodium is 139, potassium 4.3, chloride 101, CO2 is 27, anion gap is 15.3, BUN is 21, creatinine 1.5, GFR is 45, glucose 104, calcium 8.4, AST 16, ALT 24, alkaline phosphatase 65, protein 7.1. 3. Lactic acid 1.4. 4. C-reactive protein 0.8. ASSESSMENT: 1. Cellulitis of both lower extremities. 2. Open wounds, bilateral lower extremities. 3. Chronic kidney disease. 4. Coronary artery disease. 5. Hypertension. 6. Dementia with behavioral disturbances. 7. Benign prostatic hyperplasia. PLAN: We will add an additional dose of risperidone for this afternoon for ers. Continue with IV fluids. We will also continue with the Rocephin 1 g IV daily. The legs have much improved. The patient has remained afebrile. We will recheck laboratory work tomorrow morning. The patient is a code 2. The patient does not wish to be transferred to higher level of care. Continue with acute cares for now. This patient was seen and examined by me as an provider. TB: 03/21/2020 07:56:55 MODL: 03/21/2020 19:51:50 /[id number]
[2020-03-21] MEDS ORDERED: risperiDONE 0.25 MG Tab PO SCH (20:00)
[2020-03-22] MEDS: Carvedilol 6.25 MG Tab PO SCH ×2 (07:49→17:33)
[2020-03-22] MEDS: Tamsulosin 0.4 MG Cap.ER PO SCH (07:50)
[2020-03-22] MEDS: Furosemide 40 MG Tab PO SCH (07:50)
[2020-03-22] MEDS: Isosorbide Mononitrate 30 MG Tab.ER PO SCH (07:50)
[2020-03-22] MEDS: Citalopram 20 MG Tab PO SCH (07:50)
[2020-03-22] MEDS: Docusate Sodium 100 MG Cap PO SCH ×2 (07:50→19:26)
[2020-03-22] MEDS: Pantoprazole 40 MG Tab.CR PO SCH (07:51)
[2020-03-22 08:10] LABS: ANION GAP 11.9 mmol/L (10-20)
--- NOTE | 2020-03-22 08:35 | PN ---
Progress Note for LANCE HARDIN JR Date: 03/22/2020 Room #: VM.203 CHIEF COMPLAINT: 1. Cellulitis. 2. Leg wounds. SUBJECTIVE: Hospital day #3 for a 79-year-old male patient who was admitted to the acute care floor at [facility] for significant bilateral lower extremity cellulitis, leg wounds, and fluid retention. The patient offers no specific concerns this morning. He denies any pain. The patient denies any headaches. The patient denies any chest pain or shortness of breath. No cough. The patient has not had any abdominal pain. No nausea, vomiting, or diarrhea. The patient has diuresed well on p.o. Lasix. OBJECTIVE: Vital Signs: Weight 284 pounds, temperature 97.6, pulse 65, blood pressure 140/60, respiratory rate 20, oxygen saturation 93%. General: The patient is alert. The patient is disoriented. The patient does not appear to be in any acute distress. Respiratory: Diminished throughout, otherwise clear. Cardiovascular: Regular rate and rhythm, no murmurs. Skin: Open areas to the bilateral lower anterior shins. No weeping. Appear to be healing well, but slow. Edema has much improved on the Lasix. Neurological: The patient is confused, which is baseline. The patient is alert. Sensation intact. LABORATORY WORK: Pending. ASSESSMENT: 1. Cellulitis to both lower extremities. 2. Bilateral leg wounds. 3. Chronic kidney disease. 4. Coronary artery disease. 5. Hypertension. 6. Dementia with behavioral disturbances. 7. Benign prostatic hypertrophy. PLAN: Continue on IV fluids for adequate hydration. We will continue with the IV Rocephin as the patient is responding well. The wound culture did grow out Staph aureus. We will continue on the Rocephin. We will continue with Lasix. Anticipated discharge back to longterm on Tuesday. The patient is a code level 2. The patient does not wish to be transferred to higher level of care should the need arise. We will continue with acute cares for now. This patient was seen and examined by me as an [facility] provider. TB: 03/22/2020 07:51:34 MODL: 03/22/2020 08:28:30 /[id number]
[2020-03-22] MEDS: cefTRIAXone 1 GM Vial IV SCH (12:22)
[2020-03-22] MEDS: Sodium Chloride 0.9% 1,000 ML IV SCH (15:45)
[2020-03-22] MEDS: risperiDONE 0.25 MG Tab PO SCH ×2 (15:46→19:27)
[2020-03-22] MEDS: Melatonin 3 MG Tab PO SCH (19:26)
[2020-03-22] MEDS: hydrOXYzine HCl 25 MG Tab PO PRN (19:27)
[2020-03-23] MEDS: Pantoprazole 40 MG Tab.CR PO SCH (08:24)
[2020-03-23] MEDS: hydrOXYzine HCl 25 MG Tab PO PRN ×2 (08:24→19:33)
[2020-03-23] MEDS: Tamsulosin 0.4 MG Cap.ER PO SCH (08:24)
[2020-03-23] MEDS: Docusate Sodium 100 MG Cap PO SCH ×2 (08:24→19:33)
[2020-03-23] MEDS: Isosorbide Mononitrate 30 MG Tab.ER PO SCH (08:24)
[2020-03-23] MEDS: Furosemide 40 MG Tab PO SCH (08:24)
[2020-03-23] MEDS: Carvedilol 6.25 MG Tab PO SCH ×2 (08:24→17:47)
[2020-03-23] MEDS: Citalopram 20 MG Tab PO SCH (08:24)
[2020-03-23 09:22] LABS: ANION GAP 11.5 mmol/L (10-20)
[2020-03-23] MEDS: Sodium Chloride 0.9% 10 ML Syringe FLUSH PRN (11:07)
[2020-03-23] MEDS: cefTRIAXone 1 GM Vial IV SCH (11:07)
--- NOTE | 2020-03-23 13:57 | PN ---
Progress Note for LANCE HARDIN JR Date: 03/23/2020 Room #: VM.203 CHIEF COMPLAINT: 1. Cellulitis. 2. Leg wounds. SUBJECTIVE: Hospital day #4 for a 79-year-old male patient who was admitted to the acute care floor at [facility] for significant bilateral lower extremity cellulitis, leg wounds, and fluid retention. The patient is resting comfortable this morning. I was called by the nursing staff who stated the patient did have a bout of chest pain this morning around 7 a.m. The patient did have an EKG which was unchanged from previous. The patient currently does not complain of any chest pain. No focal neurological deficits. The patient denies any cough or shortness of breath. No abdominal pain. The patient denies any nausea or vomiting. OBJECTIVE: Vital Signs: Weight 284, temperature 97.4, pulse is 61, blood pressure 138/66, oxygen 91%. Respiratory rate 18. General: The patient is alert. The patient is disoriented. The patient does not appear to be in any acute distress. Respiratory: Lungs are diminished throughout, otherwise clear. Cardiovascular: Regular rate and rhythm, no murmurs. Skin: Open areas on the bilateral lower extremities are healing well. No weeping. Edema is much improved on the Lasix. Neurological: The patient is confused, which is baseline. The patient is alert. Sensation is intact. LABORATORY WORK: Pending. ASSESSMENT: 1. Cellulitis to both lower extremities. 2. Bilateral leg wounds. 3. Chronic kidney disease. 4. Acute fluid retention. 5. Coronary artery disease. 6. Hypertension. 7. Dementia with behavioral disturbances. 8. Benign prostatic hypertrophy. PLAN: The patient is stable enough for discharge back to the long term today, however, the long term does not have qualified staff to accept the patient today, therefore he will need to stay acute 1 more day. We will discontinue IV fluids. Continue with IV Rocephin. Continue on the 40 mg of Lasix daily. The patient will be discharged back to the long term tomorrow. The patient is a code level 2. The patient does not wish to be transferred to higher level of care should the need arise. Continue acute cares for now. This patient was seen and examined by me as an [facility] provider. TB: 03/23/2020 09:06:16 MODL: 03/23/2020 13:47:12 /[id number]
[2020-03-23] MEDS: risperiDONE 0.25 MG Tab PO SCH ×2 (15:33→19:33)
[2020-03-23] MEDS: Melatonin 3 MG Tab PO SCH (19:33)
[2020-03-24] MEDS: Docusate Sodium 100 MG Cap PO SCH (08:04)
[2020-03-24] MEDS: Citalopram 20 MG Tab PO SCH (08:04)
[2020-03-24] MEDS: Tamsulosin 0.4 MG Cap.ER PO SCH (08:04)
[2020-03-24] MEDS: Furosemide 40 MG Tab PO SCH (08:04)
[2020-03-24] MEDS: Isosorbide Mononitrate 30 MG Tab.ER PO SCH (08:04)
[2020-03-24] MEDS: Pantoprazole 40 MG Tab.CR PO SCH (08:04)
[2020-03-24] MEDS: Carvedilol 6.25 MG Tab PO SCH (08:05)
[2020-03-24 10:24] VITALS: BP 153/62; PULSE 71
--- NOTE | 2020-03-24 11:30 | DISCH ---
CHIEF COMPLAINT: 1. Cellulitis. 2. Bilateral lower extremity leg wounds. HISTORY OF PRESENT ILLNESS: A 79-year-old male [facility] was admitted for failing outpatient treatment of bilateral lower extremity cellulitis and open leg wounds. The patient was admitted for IV antibiotics and diuresis. The patient had been treated with cephalexin and Bactrim as outpatient, which did not appear to help heal leg wounds. BRIEF HOSPITAL COURSE: The patient remained hemodynamically stable. The patient remained afebrile. The patient did have some behaviors and extra Risperdal was given to the patient. The patient did have a couple of episodes of discontinuing his IV on his own. The patient tolerated IV fluids without any problems. The patient was started on 40 mg of p.o. Lasix in which the patient diuresed nicely. His admitting weight was 296 pounds, at discharge his weight was down to 284 pounds. The patient tolerated his diet without any problems. No issues with urination or bowel movements. The patient's leg wounds are healing nicely. The cellulitis is much improved on day of discharge. CONSULTATIONS: None. DISCHARGE LABORATORY WORK: None. DISCHARGE IMAGING STUDIES: None. DISPOSITION: The patient will be discharged from [facility] to the [facility] where the patient resides. REVIEW OF SYSTEMS: General: Negative. Respiratory: Negative. Cardiovascular: Negative. Abdomen: Negative. Skin: Bilateral lower extremity wounds. Neurological: Negative. DISCHARGE PHYSICAL EXAMINATION: Vital Signs: Temperature 98.0, pulse of 67, blood pressure 137/66, respiratory rate 18, oxygen saturation 93% on room air. General: The patient is alert. The patient is cooperative. The patient is disoriented, which is his baseline. Respiratory: Lungs are diminished throughout. No atelectasis. Cardiovascular: Regular rate and rhythm. No murmur. Abdomen: Soft, nontender. Bowel sounds are active x4. Skin: Bilateral lower extremity wounds are healing very nicely. No weeping. Laceration has resolved. Cellulitis has resolved. Neurological: The patient is disoriented, which is his baseline. The patient is alert. Sensation intact. ASSESSMENT: 1. Cellulitis-resolved. 2. Open leg wounds, bilateral lower extremity-improved. 3. Chronic kidney disease. 4. Acute fluid retention-improved. 5. Coronary artery disease. 6. Hypertension. 7. Dementia with behavioral disturbances. 8. Benign prostatic hypertrophy. PLAN: The patient will be discharged to the [facility] today. We will continue the patient on Lasix 40 mg daily. We will increase the patient's Protonix to 40 mg as the patient did continue to have some heartburn despite being on the 20 mg dose. We will continue all other medications the same. We will continue the patient on antibiotics. [facility] in followup. This patient was seen and examined by me as an [facility] provider. TB: 03/24/2020 07:20:06 MODL: 03/24/2020 11:13:07 /[id number]
== END 2020-03-24 10:00 | DRG 603 ==
LOC: VM.MS 14:25
PROVIDERS: ADMIT Nurse Practitioner Family; ATTEND Nurse Practitioner Family
DX: L03.116 Cellulitis of left lower limb (principal); F02.81 Dementia in other diseases classified elsewhere, unspecified severity, with behavioral disturbance; I13.0 Hypertensive heart and chronic kidney disease with heart failure and stage 1 through stage 4 chronic kidney disease, or unspecified chronic kidney disease; S81.802A Unspecified open wound, left lower leg, initial encounter; S81.801A Unspecified open wound, right lower leg, initial encounter; L03.115 Cellulitis of right lower limb; N18.9 Chronic kidney disease, unspecified; I25.10 Atherosclerotic heart disease of native coronary artery without angina pectoris; N40.0 Benign prostatic hyperplasia without lower urinary tract symptoms; G30.9 Alzheimer's disease, unspecified; I50.9 Heart failure, unspecified; G47.33 Obstructive sleep apnea (adult) (pediatric); E78.00 Pure hypercholesterolemia, unspecified; F29 Unspecified psychosis not due to a substance or known physiological condition; F41.1 Generalized anxiety disorder; F32.9 Major depressive disorder, single episode, unspecified; F43.10 Post-traumatic stress disorder, unspecified; F01.50 Vascular dementia, unspecified severity, without behavioral disturbance, psychotic disturbance, mood disturbance, and anxiety; Z79.899 Other long term (current) drug therapy; I25.2 Old myocardial infarction; Z88.1 Allergy status to other antibiotic agents; Z88.8 Allergy status to other drugs, medicaments and biological substances; Z20.828 Contact with and (suspected) exposure to other viral communicable diseases
CPT/HCPCS: 36415; 80048; 80053; 82550; 83605; 83735; 84484; 85025; 85652; 86140; 87040; 87070; 87077; 87147; 87186; 87205; 93005; A9270-GY; J0696; J7030; U0002

== ENCOUNTER 2020-09-07 13:30 | Emergency (ER) | payer MEDICAID, MEDICARE ==
[2020-09-07 14:19] LABS: ANION GAP 7.8 mmol/L (5-15); CHLORIDE,CL 105 mmol/L (98-107); SODIUM,NA 141 mmol/L (136-145)
[2020-09-07] MEDS ORDERED: Take Home: Sulfamethoxazole/Trimethoprim 800-160 MG Tab, 2 Tab Pack PO ONE (14:25)
[2020-09-07 15:59] VITALS: BP 123/64; PULSE 68
--- NOTE | 2020-09-07 23:37 | EDM.PDOC ---
ED HPI GENERAL MEDICAL PROBLEM - General Chief Complaint: Genitourinary Problem Time Seen by Provider: 09/07/20 13:35 Source of Information: Reports: Patient History Limitations: Reports: No Limitations - History of Present Illness INITIAL COMMENTS - FREE TEXT/NARRATIVE: Pt. presents to ER with complaints of redness/discomfort to his scrotum. He is a resident at [facility] and states that the symptoms started on Tuesday. Denies any fever or chills. No chest pain or shortness of breath. Pt. denies any testicular pain. No abdominal pain. No nausea, vomiting, or diarrhea. He has not been diaphoretic. He has been alert, oriented, and otherwise without complaint, other than scrotum pain. Onset Date: 09/01/20 Location: Reports: Pelvis (Scrotum pain.) Quality: Reports: Burning Associated Symptoms: Reports: Rash (Erythema to scrotum). Denies: Chest Pain, Cough, cough w sputum, Diaphoresis, Fever/Chills, Headaches, Loss of Appetite, Malaise, Nausea/Vomiting, Syncope, Weakness Scrotum Pain Score (Numeric/FACES): 5 - Related Data Allergies Allergy/AdvReac Type Severity Reaction Status Date / Time rosuvastatin Allergy Cannot Verified 09/07/20 16:12 Remember adenosine AdvReac Hallucinati Verified 09/07/20 16:12 ons clindamycin AdvReac Diarrhea Verified 09/07/20 16:12 gluten AdvReac Stomach Verified 09/07/20 16:12 Upset lisinopril AdvReac Cough Verified 09/07/20 16:12 terbinafine AdvReac Nausea Verified 09/07/20 16:12 Home Meds: Home Meds Isosorbide Mononitrate [Imdur] 30 mg PO DAILY 12/22/15 [History] Nitroglycerin [Nitrostat] 0.4 mg PO ASDIRECTED PRN 12/22/15 [History] Tamsulosin [Flomax] 0.4 mg PO DAILY 08/19/18 [History] carvediloL [Carvedilol] 6.25 mg PO BID 08/19/18 [History] polyethylene glycoL 3350 [MiraLAX] 17 gram PO DAILY PRN 10/02/18 [History] Docusate Sodium [Colace] 100 mg PO BID 06/01/19 [History] risperiDONE 1.5 mg PO DAILY 06/01/19 [History] Acetaminophen [Tylenol] 650 mg PO Q4HR PRN MDD 4 grams in 24 hours 06/02/19 [History] Melatonin 6 mg PO BEDTIME 06/02/19 [History] Calcium Citrate/Vitamin D3 [Calcium Citrate - Vit D Tablet] 1 tab PO BID 08/07/19 [History] Escitalopram [Lexapro] 10 mg PO DAILY 08/07/19 [History] Alum Hydrox/Mag Hydrox/Simeth [Mag-Al Plus] 10 ml PO Q4HR PRN 03/20/20 [History] Bisacodyl [Laxative Suppository] 10 mg RC DAILY PRN 03/20/20 [History] Ondansetron [Zofran ODT] 4 mg SL Q6HR PRN 03/20/20 [History] Phenylephrine/Shark Liver/Ccb [Hemorrhoidal Suppositories] 1 each RC QID PRN 03/20/20 [History] bisacodyL [Dulcolax] 15 mg PO DAILY PRN 03/20/20 [History] Furosemide [Lasix] 40 mg PO DAILY tablet 03/24/20 [Rx] Pantoprazole Sodium [Protonix] 40 mg PO DAILY #0 03/24/20 [Rx] Past Medical History HEENT History: Reports: Impaired Vision Other HEENT History: wears glasses Cardiovascular History: Reports: High Cholesterol, Hypertension Respiratory History: Reports: Sleep Apnea Gastrointestinal History: Reports: Chronic Constipation, GERD Other Gastrointestinal History: diverticulitis Genitourinary History: Reports: BPH Other Genitourinary History: CKD Other Neuro History: memory loss Psychiatric History: Reports: Alzheimers Disease, Depression Endocrine/Metabolic History: Reports: None Hematologic History: Reports: None Immunologic History: Reports: None Oncologic (Cancer) History: Reports: None Dermatologic History: Reports: None - Past Surgical History Head Surgeries/Procedures: Reports: None HEENT Surgical History: Reports: Tonsillectomy GI Surgical History: Reports: Colonoscopy, Hernia Repair/Other Social & Family History - Family History Family Medical History: No Pertinent Family History - Tobacco Use Tobacco Use Status *Q: Never Tobacco User - Caffeine Use Caffeine Use: Reports: Coffee ED ROS GENERAL - Review of Systems Review Of Systems: See Below Constitutional: Reports: No Symptoms. Denies: Fever, Chills, Malaise, Weakness, Fatigue, Night Sweats, Diaphoresis, Decreased Appetite HEENT: Reports: No Symptoms Respiratory: Reports: No Symptoms Cardiovascular: Reports: No Symptoms Endocrine: Reports: No Symptoms GI/Abdominal: Reports: No Symptoms. Denies: Abdominal Pain : Reports: Other (Discomfort/erythema to scrotum) Musculoskeletal: Reports: No Symptoms Skin: Reports: Rash, Erythema Neurological: Reports: No Symptoms Psychiatric: Reports: No Symptoms Hematologic/Lymphatic: Reports: No Symptoms Immunologic: Reports: No Symptoms ED EXAM, GENERAL - Physical Exam Exam: See Below Exam Limited By: No Limitations General Appearance: Alert, WD/WN, No Apparent Distress Throat/Mouth: Normal Inspection, Normal Lips, Normal Teeth, Normal Gums, Normal Oropharynx, Normal Voice, No Airway Compromise Head: Atraumatic, Normocephalic Neck: Normal Inspection, Supple, Non-Tender, Full Range of Motion Respiratory/Chest: No Respiratory Distress, Lungs Clear, Normal Breath Sounds, No Accessory Muscle Use, Chest Non-Tender Cardiovascular: Normal Peripheral Pulses, Regular Rate, Rhythm, No Edema, No JVD, No Murmur GI/Abdominal: Normal Bowel Sounds, Soft, Non-Tender, No Distention, No Mass. No: Tender (Male) Exam: Scrotum Tenderness (L), Scrotum Tenderness (R), Other (Erythema noted to scrotum/penis. No masses noted. No subcutaneous emphysema noted.). No: Suprapubic Fullness, Testicular Mass, Testicular Tenderness (L), Testicular Tenderness (R) Rectal (Males) Exam: Normal Exam. No: Mass, Perirectal Abscess, Tenderness Back Exam: Normal Inspection, Full Range of Motion Extremities: Normal Inspection, Normal Range of Motion, Non-Tender, No Pedal Edema, Normal Capillary Refill Neurological: Alert, Oriented, CN II-XII Intact, Normal Cognition, Normal Gait, Normal Reflexes, No Motor/Sensory Deficits Psychiatric: Normal Affect, Normal Mood Skin Exam: Warm, Dry, Intact, Erythema (Isolated to scrotum) Course - Vital Signs Last Recorded V/S: Last Vital Signs Temp 36.6 C 09/07/20 13:35 Pulse 68 09/07/20 13:35 Resp 16 09/07/20 13:35 BP 123/64 09/07/20 13:35 Pulse Ox 95 09/07/20 13:35 - Orders/Labs/Meds Labs: Laboratory Tests 09/07/20 09/07/20 09/07/20 Range/Units 13:40 13:55 13:55 WBC 10.9 H (4.0-10.0) x10^3/uL RBC 4.39 L (4.5-6.0) x10^6/uL Hgb 12.9 L (14.0-18.0) g/dL Hct 38.1 L (40.0-52.0) % MCV 86.8 (78.0-93.0) fL MCH 29.4 (26.0-32.0) pg MCHC 33.9 (32.0-36.0) g/dL RDW Coeff of Frantz 14.1 (10.0-15.0) % Plt Count 147 (130-400) x10^3/uL Neut % (Auto) 61.6 (50.0-80.0) % Lymph % (Auto) 31.7 (25.0-50.0) % Tate % (Auto) 4.5 (2.0-11.0) % Eos % (Auto) 2.0 (0.0-4.0) % Baso % (Auto) 0.2 (0.2-1.2) % Sodium 141 (136-145) mmol/L Potassium 3.8 (3.5-5.1) mmol/L Chloride 105 (98-107) mmol/L Carbon Dioxide 32 (21-32) mmol/L Anion Gap 7.8 (5-15) mmol/L BUN 22 H (7-18) mg/dL Creatinine 1.2 (0.70-1.30) mg/dL Est Cr Clr Drug Dosing TNP Estimated GFR (MDRD) 58 Glucose 94 (74-106) mg/dL Lactic Acid (0.4-2.0) mmol/L Calcium 8.2 L (8.5-10.1) mg/dL Corrected Calcium 9.08 (8.5-10.1) mg/dL Total Bilirubin 0.5 (0.2-1.0) mg/dL AST 12 L (15-37) U/L ALT 20 (16-63) U/L Alkaline Phosphatase 61 (46-116) U/L C-Reactive Protein 1.9 H (<=0.9) mg/dL Total Protein 6.3 L (6.4-8.2) g/dL Albumin 2.9 L (3.4-5.0) g/dL Globulin 3.4 Albumin/Globulin Ratio 0.85 Urine Color Yellow (YELLOW) Urine Appearance Clear (CLEAR) Urine pH 5.5 (5.0-8.0) Ur Specific Vernon 1.025 Urine Protein Negative (NEGATIVE) mg/dL Urine Glucose (UA) Negative (NEGATIVE) mg/dL Urine Ketones Negative (NEGATIVE) mg/dL Urine Occult Blood Trace-lysed H (NEGATIVE) Urine Nitrite Negative (NEGATIVE) Urine Bilirubin Negative (NEGATIVE) Urine Urobilinogen 0.2 (0.2) EU/dL Ur Leukocyte Esterase Negative (NEGATIVE) Urine RBC 5-10 H (NOT SEEN) /HPF Urine WBC 0-5 (NOT SEEN) /HPF Ur Squamous Epith Cells Not seen (NEGATIVE) /HPF Urine Bacteria Rare (NEGATIVE) /HPF Urine Mucus Not seen (NEGATIVE) /LPF 09/07/20 Range/Units 13:55 WBC (4.0-10.0) x10^3/uL RBC (4.5-6.0) x10^6/uL Hgb (14.0-18.0) g/dL Hct (40.0-52.0) % MCV (78.0-93.0) fL MCH (26.0-32.0) pg MCHC (32.0-36.0) g/dL RDW Coeff of Frantz (10.0-15.0) % Plt Count (130-400) x10^3/uL Neut % (Auto) (50.0-80.0) % Lymph % (Auto) (25.0-50.0) % Tate % (Auto) (2.0-11.0) % Eos % (Auto) (0.0-4.0) % Baso % (Auto) (0.2-1.2) % Sodium (136-145) mmol/L Potassium (3.5-5.1) mmol/L Chloride (98-107) mmol/L Carbon Dioxide (21-32) mmol/L Anion Gap (5-15) mmol/L BUN (7-18) mg/dL Creatinine (0.70-1.30) mg/dL Est Cr Clr Drug Dosing Estimated GFR (MDRD) Glucose (74-106) mg/dL Lactic Acid 1.5 (0.4-2.0) mmol/L Calcium (8.5-10.1) mg/dL Corrected Calcium (8.5-10.1) mg/dL Total Bilirubin (0.2-1.0) mg/dL AST (15-37) U/L ALT (16-63) U/L Alkaline Phosphatase (46-116) U/L C-Reactive Protein (<=0.9) mg/dL Total Protein (6.4-8.2) g/dL Albumin (3.4-5.0) g/dL Globulin Albumin/Globulin Ratio Urine Color (YELLOW) Urine Appearance (CLEAR) Urine pH (5.0-8.0) Ur Specific Vernon Urine Protein (NEGATIVE) mg/dL Urine Glucose (UA) (NEGATIVE) mg/dL Urine Ketones (NEGATIVE) mg/dL Urine Occult Blood (NEGATIVE) Urine Nitrite (NEGATIVE) Urine Bilirubin (NEGATIVE) Urine Urobilinogen (0.2) EU/dL Ur Leukocyte Esterase (NEGATIVE) Urine RBC (NOT SEEN) /HPF Urine WBC (NOT SEEN) /HPF Ur Squamous Epith Cells (NEGATIVE) /HPF Urine Bacteria (NEGATIVE) /HPF Urine Mucus (NEGATIVE) /LPF Meds: Medications Discontinued Medications Generic Name Dose Route Start Last Admin Trade Name Perez PRN Reason Stop Dose Admin Trimethoprim/Sulfamethoxazole 1 packet 09/07/20 14:25 09/07/20 14:39 Take Home: Sulfameth/Trimet 800-160mg, 2 Pack PO 09/07/20 14:26 1 packet ONETIME ONE Administration - Re-Assessments/Exams Free Text/Narrative Re-Assessment/Exam: Pt. afebrile, not tachycardic, non-toxic appearing. Discomfort appears to be superficial, with no evidence of mass, sub q air, necrosis, or other evidence of zak's gangrene. CRP and WBCs are very mildly elevated. Lactate is normal. Departure - Departure Time of Disposition: 15:00 Disposition: Home, Self-Care 01 Clinical Impression: Cellulitis, scrotum - Discharge Information Instructions: Cellulitis, Adult, Sulfamethoxazole; Trimethoprim, SMX-TMP tablets Referrals: Ofe Pérez DO [Primary Care Provider] - Forms: ED Department Discharge Additional Instructions: Bactrim DS 1 twice daily for 10 days Return to ER if he has worsening discomfort, discoloration scrotum, fever or chills Also return if he becomes tachycardic or hypotensive Recheck in clinic in 7-10 days, sooner if not gradually improving. Sepsis Event Note (ED) - Evaluation Sepsis Screening Result: No Definite Risk - Focused Exam Vital Signs: Vital Signs Temp Pulse Resp BP Pulse Ox 09/07/20 13:35 36.6 C 68 16 123/64 95 - Assessment/Plan Plan: Bactrim DS 1 twice daily for 10 days Return to ER if he has worsening discomfort, discoloration scrotum, fever or chills Also return if he becomes tachycardic or hypotensive Recheck in clinic in 7-10 days, sooner if not gradually improving.
== END 2020-09-07 15:00 | disposition home or self-care (01) ==
LOC: VM.ED 13:30
DX: N49.2 Inflammatory disorders of scrotum (principal); I12.9 Hypertensive chronic kidney disease with stage 1 through stage 4 chronic kidney disease, or unspecified chronic kidney disease; N18.9 Chronic kidney disease, unspecified; K21.9 Gastro-esophageal reflux disease without esophagitis; N40.0 Benign prostatic hyperplasia without lower urinary tract symptoms; G30.9 Alzheimer's disease, unspecified; F02.80 Dementia in other diseases classified elsewhere, unspecified severity, without behavioral disturbance, psychotic disturbance, mood disturbance, and anxiety; Z88.8 Allergy status to other drugs, medicaments and biological substances; Z88.1 Allergy status to other antibiotic agents; Z91.018 Allergy to other foods; Z79.899 Other long term (current) drug therapy
CPT/HCPCS: 36415; 80053; 81001; 83605; 85025; 86140; 99283; 99284; A9270-GY

== ENCOUNTER 2022-01-09 10:38 | Emergency (ER) | payer OTHER, MEDICARE ==
[2022-01-09 12:01] LABS: CHLORIDE,CL 102 mmol/L (98-107); SODIUM,NA 140 mmol/L (136-145)
[2022-01-09 12:05] LABS: ANION GAP 11.8 mmol/L (5-15); ESTIMATED GFR 68 mL/min (>=60)
[2022-01-09 13:32] VITALS: BP 115/60; PULSE 60
[2022-01-09] MEDS ORDERED: Sodium Chloride 0.9% 10 ML Syringe FLUSH PRN (14:11)
[2022-01-09] MEDS ORDERED: fentaNYL 50 MCG/ML SDV IVPUSH ONE (14:11)
[2022-01-09] MEDS ORDERED: Iopamidol 612 MG/ML 100 ML Bottle IVPUSH ONE (14:15)
== END 2022-01-09 16:08 | disposition short-term general hospital (02) ==
LOC: VM.ED 10:38
DX: R10.9 Unspecified abdominal pain (principal); K21.9 Gastro-esophageal reflux disease without esophagitis; I10 Essential (primary) hypertension; Z88.8 Allergy status to other drugs, medicaments and biological substances; Z88.1 Allergy status to other antibiotic agents; Z91.018 Allergy to other foods; Z79.899 Other long term (current) drug therapy
CPT/HCPCS: 36415; 74176; 80053; 81001; 85025; 85610; 96374; 99285; J3010

== ENCOUNTER 2022-08-07 16:22 | Emergency (ER) | payer OTHER, MEDICARE ==
[2022-08-07 17:08] LABS: ANION GAP 10.7 mmol/L (5-15); CHLORIDE,CL 103 mmol/L (98-107); ESTIMATED GFR 67 mL/min (>=60); SODIUM,NA 142 mmol/L (136-145)
[2022-08-07] MEDS ORDERED: Nitroglycerin 0.4 MG Tab.SL SL PRN (17:10)
[2022-08-07] MEDS: Morphine 2 MG/ML SYRINGE IVPUSH ONE (17:20)
[2022-08-07] MEDS: Aspirin 81 MG Tab.Chew PO ONE (17:24)
== END 2022-08-07 22:05 | disposition home or self-care (01) ==
LOC: VM.ED 16:22
DX: R07.89 Other chest pain (principal); K21.9 Gastro-esophageal reflux disease without esophagitis; I12.9 Hypertensive chronic kidney disease with stage 1 through stage 4 chronic kidney disease, or unspecified chronic kidney disease; N18.9 Chronic kidney disease, unspecified; N40.0 Benign prostatic hyperplasia without lower urinary tract symptoms; G30.9 Alzheimer's disease, unspecified; F02.80 Dementia in other diseases classified elsewhere, unspecified severity, without behavioral disturbance, psychotic disturbance, mood disturbance, and anxiety; Z88.8 Allergy status to other drugs, medicaments and biological substances; Z88.1 Allergy status to other antibiotic agents; Z91.018 Allergy to other foods; Z79.899 Other long term (current) drug therapy
CPT/HCPCS: 36415; 71045; 80053; 81003; 83605; 83880; 84484; 85025; 85610; 93005; 96374; 99284; 99285-25; A9270-GY; J2270